=== PATIENT | male | born 1950 | race Caucasian/White ===

== ENCOUNTER 2017-05-28 05:46 | Day surgery (SDC) | payer MEDICARE ==
[2017-05-28] MEDS ORDERED: Lactated Ringers 1,000 ML IV SCH (06:30)
[2017-05-28 07:55] LABS: ANION GAP 15.8 MEQ/L (5-15); Potassium 3.8 mEq/L (3.5-5.1)
[2017-05-28] MEDS ORDERED: DIPRIVAN 200 MG/20 ML IV ONE (09:00)
[2017-05-28] MEDS ORDERED: Versed 2 MG/2 ML Injection IV ONE (09:00)
--- NOTE | 2017-05-28 09:00 | OP ---
SURGERY DATE/TIME: 05/28/2017 0755 PREOPERATIVE DIAGNOSIS: Left lower quadrant abdominal pain. POSTOPERATIVE DIAGNOSIS: Moderate sigmoid diverticulosis otherwise normal colon. PROCEDURE: Colonoscopy. SURGEON: Dr. Russell. ANESTHESIA: MAC. Medications given by anesthesia department. HISTORY: The patient is a 66 year-old white male patient presenting now for colonoscopic evaluation. He has been complaining of left lower quadrant abdominal pain. He reports previously having a colonoscopy where he did have diverticula but polyps were also found. The patient was felt the need to have endoscopic evaluation. He was reappraised of the risks of the procedure including the risk of perforation, phlebitis, untoward reaction to medication, bleeding and missed lesions. The patient verbalized his understanding and desired to have the procedure performed. DESCRIPTION OF PROCEDURE: The patient was given the medications by the anesthesia department. He had continuous pulse oximetry, ECG monitoring, intermittent blood pressure monitoring, and tidal CO2 monitoring during the examination. He was placed in the left lateral decubitus position. A digital rectal examination was performed and revealed a smooth, regular but enlarged prostate. Normal anal sphincter tone and no masses. The flexible Olympus pediatric colonoscope was used to intubate the rectum. A view of the colon was developed sequentially to the cecum. Upon insertion and withdrawal, including a retroflex view in the rectum, there was noted moderate sigmoid diverticula but no other mucosal lesions were encountered. The scope was removed from the patient who tolerated the procedure well and was sent back to OP recovery in good condition. The prep was noted to be fair to good in the left colon but the right colon had some fecal material still present.
[2017-05-28 10:01] VITALS: BP 101/60; PULSE 80; O2SAT 95
[2017-05-29 07:47] LABS: Prostate Specific Antigen 1.28 ng/mL (<=4.50)
== END 2017-05-28 09:45 | disposition home or self-care (01) ==
LOC: SDC 05:46
PROVIDERS: ATTEND Family Medicine
PROC: 0DJD8ZZ Inspection of Lower Intestinal Tract, Via Natural or Artificial Opening Endoscopic (ICD-10-PCS; principal; 2017-05-28)
DX: R10.32 Left lower quadrant pain (principal); K57.30 Diverticulosis of large intestine without perforation or abscess without bleeding
CPT/HCPCS: 00810; 36415; 80048; 84153; 84154; J2250; J2704

== ENCOUNTER 2018-11-05 10:48 | Emergency (ER) | payer MEDICARE ==
[2018-11-05 11:22] VITALS: BP 118/75; PULSE 72; O2SAT 98
--- NOTE | 2018-11-05 11:28 | ERPHSYRPT ---
- History of Present Illness Time Seen by Provider: 11/05/18 11:25 Source: patient Exam Limitations: no limitations Patient Subjective Stated Complaint: right side back pain x 3 days.. no known injury. denies urinary problems. vague with symptoms. states pain increases with movement. Triage Nursing Assessment: alert and in no distress. states pain cheyanne right low back area with no known injury. vague about urinary symptoms. states increased pain with movement and deep breathing. pain on palpation Physician History: 67-year-old white male with history of COPD, diabetes type 2, arthritis, who states he has a weak heart and is on a water pill. Patient arrives with complaint of right flank pain intermittent sharp symptoms going on for 3 days states it is somewhat moderate in intensity when it occurs it is somewhat worse with moving. He does state he has had some dysuria denies hematuria. Past medical history includes COPD, diabetes type 2, arthritis, "weak heart muscle" Past surgical history includes cardiac catheterization Social history patient denies tobacco alcohol or illicit drug use Timing/Duration: day(s) (3 days) Severity: moderate Modifying Factors: Improves With: movement. Worsens With: eating, immobilization, medication, rest, acetaminophen, ibuprofen, nothing Associated Symptoms: other (right flank pain), No nausea, No vomiting, No abdominal pain, No shortness of breath, No heartburn, No diaphoresis, No cough, No chills, No chest pain, No fever, No headaches, No loss of appetite, No malaise, No rash, No syncope, No seizure, No weakness Allergies/Adverse Reactions: Penicillins Allergy (Verified 11/05/18 11:38) Home Medications: Albuterol Sulfate [Proair Hfa] 2 puff IH Q4HPRN PRN 02/20/13 [History] Metoprolol Tartrate 50 mg [Lopressor 50 MG] 25 mg PO BID 02/20/13 [History ] Omeprazole 40 mg PO DAILY 02/20/13 [History] Allopurinol 300 mg [Zyloprim 300 mg] 300 mg PO DAILY 03/13/14 [History] Aspirin [Aspirin EC] 81 mg PO DAILY 03/13/14 [History] Enalapril Maleate 10 mg [Vasotec 10 MG] 10 mg PO BID 03/13/14 [History] Furosemide 40 mg PO BID 03/13/14 [History] Montelukast Sodium 10 mg [Singulair 10 MG] 10 mg PO HS 03/13/14 [History] Potassium Chloride [Klor-Con 8] 8 meq PO BID 03/13/14 [History] Acetaminophen/Dp-Hydram HCl [Acetaminophen Pm Tablet] 1 each PO HS 03/26/16 [ History] Meloxicam 7.5 mg [Mobic 7.5 MG] 7.5 mg PO DAILY 03/26/16 [History] Bellona-3 Fatty Acids/Fish Oil [Fish Oil 1,000 mg Capsule] 1,000 mg PO DAILY 05/22/17 [History] Hx Tetanus, Diphtheria Vaccination/Date Given: No Hx Influenza Vaccination/Date Given: No Hx Pneumococcal Vaccination/Date Given: No - Review of Systems Constitutional: No Fever, No Chills Eyes: No Symptoms Ears, Nose, & Throat: No Symptoms Respiratory: No Cough, No Dyspnea Cardiac: No Chest Pain, No Edema, No Syncope Abdominal/Gastrointestinal: No Nausea, No Vomiting, No Diarrhea, No Constipation , No Hematemesis, No Hematochezia, No Melena, No Dysphagia, No Appetite Changes Genitourinary Symptoms: Dysuria, Flank Pain (right flank pain), No Frequency, No Hematuria, No Hesitancy, No Incontinence, No Urgency, No Urinary Retention, No Testicle Pain, No Penile Discharge Musculoskeletal: Back Pain (right flank pain), No Arthralgias, No Neck Pain, No Injury, No Joint Redness, No Joint Pain, No Joint Swelling, No Myalgias Skin: No Symptoms Neurological: No Dizziness, No Focal Weakness, No Sensory Changes Psychological: No Symptoms Endocrine: No Symptoms All Other Systems: Reviewed and Negative - Past Medical History Pertinent Past Medical History: Yes Neurological History: No Pertinent History ENT History: No Pertinent History Cardiac History: Congestive Heart Failure, Other Respiratory History: COPD Endocrine Medical History: Diabetes Type II Musculoskeletal History: Arthritis GI Medical History: GERD History: No Pertinent History Psycho-Social History: No Pertinent History Male Reproductive Disorders: No Pertinent History Other Medical History: weak heart muscles, cardiomyopathy - Past Surgical History Past Surgical History: Yes Neuro Surgical History: No Pertinent History Cardiac: Cardiac Catheterization Respiratory: No Pertinent History Gastrointestinal: No Pertinent History Genitourinary: No Pertinent History Musculoskeletal: No Pertinent History Male Surgical History: No Pertinent History - Social History Smoking Status: Never smoker Exposure to second hand smoke: No Drug Use: none Patient Lives Alone: No - Nursing Vital Signs Nursing Vital Signs: Initial Vital Signs Temperature 98.7 F 11/05/18 11:10 Pulse Rate 72 11/05/18 11:10 Respiratory Rate 18 11/05/18 11:10 Blood Pressure 118/75 11/05/18 11:10 O2 Sat by Pulse Oximetry 98 11/05/18 11:10 Pain Scale Pain Intensity [] 6 Pain Intensity 6 - Physical Exam General Appearance: mild distress, alert Eye Exam: PERRL/EOMI, eyes nml inspection Ears, Nose, Throat Exam: normal ENT inspection, TMs normal, pharynx normal, moist mucous membranes Neck Exam: normal inspection, non-tender, supple, full range of motion Respiratory Exam: normal breath sounds, lungs clear, No respiratory distress Cardiovascular Exam: regular rate/rhythm, normal heart sounds, normal peripheral pulses, capillary refill <2 sec Gastrointestinal/Abdomen Exam: soft, distention (abdomen mildly distended), No tenderness, No mass, No guarding, No ecchymosis, No pulsatile mass, No rebound, No hernia, No hepatomegaly, No organomegaly, No splenomegaly Back Exam: normal range of motion, CVA tenderness (right flank tenderness), No vertebral tenderness, No rash, No decreased range of motion, No muscle spasm, No point tenderness Extremity Exam: normal inspection, normal range of motion, pelvis stable Neurologic Exam: alert, oriented x 3, cooperative, 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 Nonobstructing bilateral renal micro-calculi. Stable small bilateral renal cyst. 2. New cardiomegaly and spleno megaly. 3. Stable large gallstone(3cm), hepatomegaly, colonic diverticulosis and enlarged prostate gland) Ordered Tests: Active Orders 24 hr Category Date Time Status IV Insertion STAT Care 11/05/18 11:23 Active ABDOMEN AND PELVIS W/0 CONTRAS [CT] Stat Exams 11/05/18 11:24 Completed AMYLASE Stat Lab 11/05/18 11:46 Completed CBC W DIFF Stat Lab 11/05/18 11:46 Completed CMP Stat Lab 11/05/18 11:46 Completed LIPASE Stat Lab 11/05/18 11:46 Completed UA W/RFX UR CULTURE Stat Lab 11/05/18 11:46 Completed Medication Summary Generic Name Dose Route Start Last Admin Trade Name Freq PRN Reason Stop Dose Admin Sodium Chloride 1,000 mls @ 100 mls/hr 11/05/18 11:30 11/05/18 11:51 Sodium Chloride 0.9% 1000 Ml IV 12/05/18 11:29 100 mls/hr .Q10H WYATT Administration Discontinued Medications Generic Name Dose Route Start Last Admin Trade Name Freq PRN Reason Stop Dose Admin Morphine Sulfate 4 mg 11/05/18 11:23 11/05/18 11:50 Morphine Sulfate 4 Mg Inj IV 11/05/18 11:24 4 mg STAT ONE Administration Morphine Sulfate Confirm 11/05/18 11:46 Morphine Sulfate 4 Mg Inj Administered 11/05/18 11:47 Dose 4 mg .ROUTE .STK-MED ONE Ondansetron HCl 4 mg 11/05/18 11:23 11/05/18 11:51 Zofran 4 Mg/2 Ml Vial IV 11/05/18 11:24 4 mg STAT ONE Administration Ondansetron HCl Confirm 11/05/18 11:46 Zofran 4 Mg/2 Ml Vial Administered 11/05/18 11:47 Dose 4 mg .ROUTE .STK-MED ONE Lab/Rad Data: Laboratory Result Diagrams 11/05/18 11:46 11/05/18 11:46 Laboratory Results 11/05/18 11/05/18 11/05/18 Range/Units 11:46 11:46 11:46 WBC 6.6 (4.0-10.5) K/mm3 RBC 4.35 (4.1-5.6) M/mm3 Hgb 13.7 (12.5-18.0) gm/dl Hct 42.3 (42-50) % MCV 97.2 (78-100) fl MCH 31.5 (26-32) pg MCHC 32.4 (32-36) g/dl RDW 13.5 (11.5-14.0) % Plt Count 169 (150-450) K/mm3 MPV 11.4 H (6-9.5) fl Gran % 68.6 H (36.0-66.0) % Eos # (Auto) 0.10 (0-0.5) Absolute Lymphs (auto) 1.45 (1.0-4.6) Absolute Monos (auto) 0.48 (0.0-1.3) Lymphocytes % 22.0 L (24.0-44.0) % Monocytes % 7.3 (0.0-12.0) % Eosinophils % 1.5 (0.00-5.0) % Basophils % 0.6 (0.0-0.4) % Absolute Granulocytes 4.52 (1.4-6.9) Basophils # 0.04 (0-0.4) Sodium 142 (137-145) mmol/L Potassium 4.3 (3.5-5.1) mmol/L Chloride 104 (98-107) mmol/L Carbon Dioxide 29 (22-30) mmol/L Anion Gap 13.4 (5-15) MEQ/L BUN 21 H (9-20) mg/dL Creatinine 1.21 (0.66-1.25) mg/dL Estimated GFR > 60.0 ML/MIN Glucose 143 H (74-106) mg/dL Calcium 9.2 (8.4-10.2) mg/dL Total Bilirubin 0.80 (0.2-1.3) mg/dL AST 26 (17-59) U/L ALT 26 (0-50) U/L Alkaline Phosphatase 78 (38-126) U/L Serum Total Protein 7.0 (6.3-8.2) g/dL Albumin 4.2 (3.5-5.0) g/dL Amylase 54 (30-110) U/L Lipase 52 (23-300) U/L Urine Color STRAW (YELLOW) Urine Appearance CLEAR (CLEAR) Urine pH 6.0 (5-6) Ur Specific [place] 1.006 (1.005-1.025) Urine Protein NEGATIVE (Negative) Urine Ketones NEGATIVE (NEGATIVE) Urine Blood NEGATIVE (0-5) Jorge/ul Urine Nitrite NEGATIVE (NEGATIVE) Urine Bilirubin NEGATIVE (NEGATIVE) Urine Urobilinogen NEGATIVE (0-1) mg/dL Ur Leukocyte Esterase NEGATIVE (NEGATIVE) Urine WBC (Auto) NONE (0-5) /HPF Urine RBC (Auto) NONE (0-2) /HPF U Epithel Cells (Auto) NONE (FEW) /HPF Urine Bacteria (Auto) NONE (NEGATIVE) /HPF Urine Culture Reflexed NO (NO) Urine Glucose NEGATIVE (NEGATIVE) mg/dL - Progress Progress: improved Progress Note: 11/05/18 12:29 67-year-old white male arrives with complaint of right flank pain for 3 days he states he has had dysuria. Patient's labs essentially normal CT of the abdomen shows nonobstructed bilateral renal micro-calculi. In stable small bilateral renal cysts. There is new cardiomegaly and splenomegaly as compared to 2015. Patient has a stable 3 cm gallstone and hepatomegaly, colonic diverticulosis and enlarged prostate gland. Will plan to place patient on [place] for pain patient will need to follow-up with his family doctor. - Departure Time of Disposition: 12:36 Departure Disposition: Home Clinical Impression: Right flank pain, Splenomegaly Gallstone Qualifiers: Cholecystitis presence: without cholecystitis Biliary obstruction: without biliary obstruction Qualified Code(s): K80.20 - Calculus of gallbladder without cholecystitis without obstruction Condition: Fair Critical Care Time: No Referrals: MAXIMUS RUSSELL [Primary Care Provider] - Additional Instructions: Return home. [place] 5/325 one orally every 4-6 hours as needed for pain. Follow-up with Dr. Russell. Call his office and arrange a follow-up appointment.. Return for acute distress or for severe symptoms. Prescriptions: Hydrocodone/Acetaminophen [[place] 5-325 Tablet] 1 tablet PO Q4-6HPRN PRN #12 tablet MDD 6 tablets PRN Reason: Pain
[2018-11-05] MEDS ORDERED: MORPHINE SULFATE 4 MG INJ ONE (11:46)
[2018-11-05] MEDS ORDERED: Sodium Chloride 0.9% 1000 ML 1,000 ML ONE (11:46)
[2018-11-05] MEDS ORDERED: Zofran 4 MG/2 ML VIAL ONE (11:46)
[2018-11-05 11:48] LABS: BASOPHIL % 0.6 % (0.0-0.4); Basophil (Absolute #) 0.04 (0-0.4); Eosinophil % 1.5 % (0.00-5.0); Granulocyte Absolute (ANC) 4.52 (1.4-6.9); Granulocytes % 68.6 % (36.0-66.0); Hematocrit 42.3 % (42-50); Hemoglobin 13.7 gm/dl (12.5-18.0); Lymphocyte (Absolute #) 1.45 (1.0-4.6); Mean Cell Volume 97.2 fl (78-100); Mean Corpuscular Hemoglobin 31.5 pg (26-32); Mean Corpuscular Hgb Concent. 32.4 g/dl (32-36); Mean Platelet Volume 11.4 fl (6-9.5); Monocyte (Absolute #) 0.48 (0.0-1.3); Monocytes % 7.3 % (0.0-12.0); Platelet Count 169 K/mm3 (150-450); Red Blood Count 4.35 M/mm3 (4.1-5.6); Red Cell Distribution Width 13.5 % (11.5-14.0); White Blood Count 6.6 K/mm3 (4.0-10.5)
[2018-11-05 11:50] LABS: Appearance CLEAR (CLEAR); Bilirubin NEGATIVE (NEGATIVE); Blood NEGATIVE Ery/ul (0-5); Glucose NEGATIVE (NEGATIVE); Ketones NEGATIVE (NEGATIVE); Leukocyte Esterase NEGATIVE (NEGATIVE); Nitrite NEGATIVE (NEGATIVE); Protein,Urine Dip NEGATIVE (Negative); Specific Gravity 1.006 (1.005-1.025); Urobilinogen NEGATIVE mg/dL (0-1)
[2018-11-05] MEDS: MORPHINE SULFATE 4 MG INJ IV ONE (11:50)
[2018-11-05] MEDS: Sodium Chloride 0.9% 1000 ML 1,000 ML IV SCH (11:51)
[2018-11-05] MEDS: Zofran 4 MG/2 ML VIAL IV ONE (11:51)
[2018-11-05 11:59] LABS: ALBUMIN 4.2 g/dL (3.5-5.0); ALKALINE PHOSPHATASE 78 U/L (38-126); AMYLASE 54 U/L (30-110); ANION GAP 13.4 MEQ/L (5-15); BLOOD UREA NITROGEN 21 mg/dL (9-20); CHLORIDE 104 mmol/L (98-107); Calcium 9.2 mg/dL (8.4-10.2); Carbon Dioxide 29 mmol/L (22-30); Creatinine 1 1.21 mg/dL (0.66-1.25); Glucose 143 mg/dL (74-106); LIPASE 52 U/L (23-300); Potassium 4.3 mmol/L (3.5-5.1); SGOT/AST 26 U/L (17-59); SGPT/ALT 26 U/L (0-50); SODIUM 142 mmol/L (137-145)
--- NOTE | 2018-11-05 12:26 | XRAY ---
Indication: Right flank pain. Multiple contiguous axial images obtained through the abdomen and pelvis without contrast using renal stone protocol. Comparison: March 12, 2015. Lung bases demonstrates mild bilateral dependent atelectasis. A few tiny right base calcified granulomas. No infiltrate or effusion. Heart is now enlarged. Again a few nonobstructing bilateral renal micro-calculi and small bilateral renal cysts. Stable 3 cm gallstone and hepatomegaly. Spleen is now enlarged measuring 15 cm in greatest axial dimension again with calcified granulomas. Stable enlarged prostate gland again impressing on the base of the bladder. Noncontrasted stomach and bowel loops appear nonobstructed. Normal appendix. Again scattered colonic diverticulosis, greatest in the sigmoid. No free fluid/air. Remaining liver, pancreas, adrenal glands, spleen, kidneys, ureters, bladder, and aorta appear unremarkable for noncontrast exam. Osseous structures intact again with mild/moderate degenerative changes throughout the spine. No ventral or inguinal hernias. Impression: 1. Again nonobstructing bilateral renal micro-calculi. Stable small bilateral renal cysts. 2. New cardiomegaly and splenomegaly. 3. Stable large gallstone, hepatomegaly, colonic diverticulosis, and enlarged prostate gland. CT DI 28.13
== END 2018-11-05 12:55 | disposition home or self-care (01) ==
LOC: ED 10:48
DX: R10.9 Unspecified abdominal pain (principal); R16.2 Hepatomegaly with splenomegaly, not elsewhere classified; K80.80 Other cholelithiasis without obstruction; K57.30 Diverticulosis of large intestine without perforation or abscess without bleeding; N40.0 Benign prostatic hyperplasia without lower urinary tract symptoms; N28.1 Cyst of kidney, acquired; Z79.899 Other long term (current) drug therapy; R30.0 Dysuria
CPT/HCPCS: 36000; 36415; 74176; 80053; 81001; 82150; 83690; 85025; 96360; 96374; 96375; 99284; J2270; J2405

== ENCOUNTER 2018-12-09 11:19 | Emergency (ER) | payer MEDICARE ==
[2018-12-09] MEDS ORDERED: Sodium Chloride 0.9% 1000 ML 1,000 ML IV STA (11:45)
[2018-12-09] MEDS ORDERED: Hydromorphone 1 mg/ml Ampule IV ONE (11:45)
[2018-12-09] MEDS ORDERED: Zofran 4 MG/2 ML VIAL IV ONE (11:45)
--- NOTE | 2018-12-09 11:45 | ERPHSYRPT ---
- History of Present Illness Time Seen by Provider: 12/09/18 11:30 Historian: patient, family Exam Limitations: no limitations Patient Subjective Stated Complaint: Pain in right back, vomiting Triage Nursing Assessment: Pt c/o of right sided back pain that radiates to the front upper and lower quadrants of the right side, pain with palpatation, last BM today, last intake at dinner yesterday, rates pain 6/10, N&V, pulses normal, +1 edema to bilateral lower extremeties, vitals wnl, reports that he had been diagnosed with either gall stones or kidney stones, he can't remember which one Physician History: 67 y/o morbidly obese white male with cardiomyopathy,chf and copd presents with right flank pain radiating to ruq and associated n/v intermittently since . pt is being evaluated by pcp. had appt with pcp scheduled for today at 1pm. could not take the pain. pt denies cp and denies soa. pt has known gallstones and kidney stones. pt is scheduled for eval by glass block installer in January 2019 Activities at Onset: none Quality: aching, sharpness Abdominal Pain Onset Location: RUQ, flank (right) Severity of Pain-Max: moderate Severity of Pain-Current: mild Modifying Factors: Improves With: vomiting Associated Symptoms: back, vomiting Previous symptoms: same symptoms as today Allergies/Adverse Reactions: Penicillins Allergy (Verified 12/09/18 11:40) Home Medications: Albuterol Sulfate [Proair Hfa] 2 puff IH Q4HPRN PRN 02/20/13 [History] Metoprolol Tartrate 50 mg [Lopressor 50 MG] 25 mg PO BID 02/20/13 [History ] Omeprazole 40 mg PO DAILY 02/20/13 [History] Allopurinol 300 mg [Zyloprim 300 mg] 300 mg PO DAILY 03/13/14 [History] Aspirin [Aspirin EC] 81 mg PO DAILY 03/13/14 [History] Enalapril Maleate 10 mg [Vasotec 10 MG] 10 mg PO BID 03/13/14 [History] Furosemide 80 mg PO DAILY 03/13/14 [History] Montelukast Sodium 10 mg [Singulair 10 MG] 10 mg PO HS 03/13/14 [History] Potassium Chloride [Klor-Con 8] 8 meq PO BID 03/13/14 [History] Acetaminophen/Dp-Hydram HCl [Acetaminophen Pm Tablet] 1 each PO HS 03/26/16 [ History] Meloxicam 7.5 mg [Mobic 7.5 MG] 7.5 mg PO DAILY 03/26/16 [History] [place]-3 Fatty Acids/Fish Oil [Fish Oil 1,000 mg Capsule] 1,000 mg PO DAILY 05/22/17 [History] Fluticasone/Salmeterol [Advair 250-50 Diskus] 1 each IH BID 12/09/18 [History] Nizatidine [Axid] 150 mg PO BID 12/09/18 [History] Hx Tetanus, Diphtheria Vaccination/Date Given: No Hx Influenza Vaccination/Date Given: No Hx Pneumococcal Vaccination/Date Given: No - Review of Systems Constitutional: No Symptoms Eyes: No Symptoms Ears, Nose, & Throat: No Symptoms Respiratory: No Symptoms Cardiac: No Symptoms, No Palpitations, No Syncope Abdominal/Gastrointestinal: Abdominal Pain (ruq), Nausea, Vomiting, No Diarrhea Genitourinary Symptoms: No Symptoms, No Dysuria, No Frequency, No Hematuria Musculoskeletal: Back Pain (right flank) Skin: No Symptoms Neurological: No Symptoms Psychological: No Symptoms Endocrine: No Symptoms Hematologic/Lymphatic: No Symptoms Immunological/Allergic: No Symptoms All Other Systems: Reviewed and Negative - Past Medical History Pertinent Past Medical History: Yes Neurological History: No Pertinent History ENT History: No Pertinent History Cardiac History: Congestive Heart Failure, Other Respiratory History: COPD Endocrine Medical History: Diabetes Type II Musculoskeletal History: Arthritis GI Medical History: GERD History: No Pertinent History Psycho-Social History: No Pertinent History Male Reproductive Disorders: No Pertinent History Other Medical History: weak heart muscles, cardiomyopathy, enlarged spleen - Past Surgical History Past Surgical History: Yes Neuro Surgical History: No Pertinent History Cardiac: Cardiac Catheterization Respiratory: No Pertinent History Gastrointestinal: No Pertinent History Genitourinary: No Pertinent History Musculoskeletal: No Pertinent History Male Surgical History: No Pertinent History - Social History Smoking Status: Never smoker Exposure to second hand smoke: No Drug Use: none Patient Lives Alone: No - Nursing Vital Signs Nursing Vital Signs: Initial Vital Signs Temperature 97.6 F 12/09/18 11:22 Pulse Rate 73 12/09/18 11:22 Blood Pressure 104/60 12/09/18 11:22 O2 Sat by Pulse Oximetry 93 L 12/09/18 11:22 Pain Scale Pain Intensity 6 - Physical Exam General Appearance: mild distress, alert Eye Exam: PERRL/EOMI Ears, Nose, Throat Exam: normal ENT inspection, moist mucous membranes Neck Exam: normal inspection, non-tender, supple, full range of motion Respiratory Exam: normal breath sounds, lungs clear, airway intact, No chest tenderness, No respiratory distress, No accessory muscle use, No rhonchi, No wheezing, No stridor Cardiovascular Exam: regular rate/rhythm, normal heart sounds, normal peripheral pulses Gastrointestinal/Abdomen Exam: soft, normal bowel sounds, tenderness (mild ruq with palpation), No guarding, No rebound Rectal Exam: not done Back Exam: normal inspection, normal range of motion, CVA tenderness (right), No vertebral tenderness Extremity Exam: normal inspection, normal range of motion, pelvis stable Skin Exam: normal color, warm Lymphatic Exam: No adenopathy SpO2 Interpretation: borderline oxygenation SpO2: 93 - Course Nursing assessment & vital signs reviewed: Yes Ordered Tests: Active Orders 24 hr Category Date Time Status IV Insertion STAT Care 12/09/18 11:45 Active ABDOMEN AND PELVIS W/0 CONTRAS [CT] Stat Exams 12/09/18 11:47 Completed AMYLASE Stat Lab 12/09/18 12:00 Completed CBC W DIFF Stat Lab 12/09/18 12:00 Completed CMP Stat Lab 12/09/18 12:00 Completed LIPASE Stat Lab 12/09/18 12:00 Completed Lactic Acid Stat Lab 12/09/18 11:45 Results UA W/RFX UR CULTURE Stat Lab 12/09/18 12:34 Completed Medication Summary Discontinued Medications Generic Name Dose Route Start Last Admin Trade Name Freq PRN Reason Stop Dose Admin Hydromorphone HCl 1 mg 12/09/18 11:45 12/09/18 12:30 Hydromorphone 1 Mg/Ml Ampule IV 12/09/18 11:46 1 mg STAT ONE Administration Hydromorphone HCl Confirm 12/09/18 12:07 Hydromorphone 1 Mg/Ml Ampule Administered 12/09/18 12:08 Dose 1 mg .ROUTE .STK-MED ONE Sodium Chloride 1,000 mls @ 999 mls/hr 12/09/18 11:45 12/09/18 12:29 Sodium Chloride 0.9% 1000 Ml IV 12/09/18 12:45 999 mls/hr .Q1H1M STA Administration Sodium Chloride Confirm 12/09/18 12:07 Sodium Chloride 0.9% 1000 Ml Administered 12/09/18 12:08 Dose 1,000 mls @ ud .ROUTE .STK-MED ONE Ondansetron HCl 4 mg 12/09/18 11:45 12/09/18 12:29 Zofran 4 Mg/2 Ml Vial IV 12/09/18 11:46 4 mg STAT ONE Administration Ondansetron HCl Confirm 12/09/18 12:07 Zofran 4 Mg/2 Ml Vial Administered 12/09/18 12:08 Dose 4 mg .ROUTE .STK-MED ONE Lab/Rad Data: Laboratory Result Diagrams 12/09/18 12:00 12/09/18 12:00 Laboratory Results 12/09/18 12/09/18 12/09/18 Range/Units 12:34 12:00 12:00 WBC 8.9 (4.0-10.5) K/mm3 RBC 4.49 (4.1-5.6) M/mm3 Hgb 13.8 (12.5-18.0) gm/dl Hct 43.1 (42-50) % MCV 96.0 (78-100) fl MCH 30.7 (26-32) pg MCHC 32.0 (32-36) g/dl RDW 13.8 (11.5-14.0) % Plt Count 157 (150-450) K/mm3 MPV 11.9 H (6-9.5) fl Gran % 69.8 H (36.0-66.0) % Eos # (Auto) 0.10 (0-0.5) Absolute Lymphs (auto) 1.98 (1.0-4.6) Absolute Monos (auto) 0.59 (0.0-1.3) Lymphocytes % 22.2 L (24.0-44.0) % Monocytes % 6.6 (0.0-12.0) % Eosinophils % 1.1 (0.00-5.0) % Basophils % 0.3 (0.0-0.4) % Absolute Granulocytes 6.23 (1.4-6.9) Basophils # 0.03 (0-0.4) Sodium 139 (137-145) mmol/L Potassium 4.0 (3.5-5.1) mmol/L Chloride 102 (98-107) mmol/L Carbon Dioxide 27 (22-30) mmol/L Anion Gap 15.0 (5-15) MEQ/L BUN 27 H (9-20) mg/dL Creatinine 1.11 (0.66-1.25) mg/dL Estimated GFR > 60.0 ML/MIN Glucose 232 H (74-106) mg/dL Lactic Acid (0.4-2.0) Calcium 9.3 (8.4-10.2) mg/dL Total Bilirubin 1.00 (0.2-1.3) mg/dL AST 27 (17-59) U/L ALT 29 (0-50) U/L Alkaline Phosphatase 97 (38-126) U/L Serum Total Protein 7.3 (6.3-8.2) g/dL Albumin 4.4 (3.5-5.0) g/dL Amylase 46 (30-110) U/L Lipase 45 (23-300) U/L Urine Color STRAW (YELLOW) Urine Appearance CLEAR (CLEAR) Urine pH 6.0 (5-6) Ur Specific [place] 1.006 (1.005-1.025) Urine Protein NEGATIVE (Negative) Urine Ketones NEGATIVE (NEGATIVE) Urine Blood NEGATIVE (0-5) Jorge/ul Urine Nitrite NEGATIVE (NEGATIVE) Urine Bilirubin NEGATIVE (NEGATIVE) Urine Urobilinogen NEGATIVE (0-1) mg/dL Ur Leukocyte Esterase NEGATIVE (NEGATIVE) Urine WBC (Auto) NONE (0-5) /HPF Urine RBC (Auto) NONE SEEN (0-2) /HPF U Epithel Cells (Auto) NONE (FEW) /HPF Urine Bacteria (Auto) NONE (NEGATIVE) /HPF Urine Mucus (Auto) SLIGHT (NEGATIVE) /HPF Urine Culture Reflexed NO (NO) Urine Glucose NEGATIVE (NEGATIVE) mg/dL 12/09/18 Range/Units 11:45 WBC (4.0-10.5) K/mm3 RBC (4.1-5.6) M/mm3 Hgb (12.5-18.0) gm/dl Hct (42-50) % MCV (78-100) fl MCH (26-32) pg MCHC (32-36) g/dl RDW (11.5-14.0) % Plt Count (150-450) K/mm3 MPV (6-9.5) fl Gran % (36.0-66.0) % Eos # (Auto) (0-0.5) Absolute Lymphs (auto) (1.0-4.6) Absolute Monos (auto) (0.0-1.3) Lymphocytes % (24.0-44.0) % Monocytes % (0.0-12.0) % Eosinophils % (0.00-5.0) % Basophils % (0.0-0.4) % Absolute Granulocytes (1.4-6.9) Basophils # (0-0.4) Sodium (137-145) mmol/L Potassium (3.5-5.1) mmol/L Chloride (98-107) mmol/L Carbon Dioxide (22-30) mmol/L Anion Gap (5-15) MEQ/L BUN (9-20) mg/dL Creatinine (0.66-1.25) mg/dL Estimated GFR ML/MIN Glucose (74-106) mg/dL Lactic Acid 3.1 H (0.4-2.0) Calcium (8.4-10.2) mg/dL Total Bilirubin (0.2-1.3) mg/dL AST (17-59) U/L ALT (0-50) U/L Alkaline Phosphatase (38-126) U/L Serum Total Protein (6.3-8.2) g/dL Albumin (3.5-5.0) g/dL Amylase (30-110) U/L Lipase (23-300) U/L Urine Color (YELLOW) Urine Appearance (CLEAR) Urine pH (5-6) Ur Specific [place] (1.005-1.025) Urine Protein (Negative) Urine Ketones (NEGATIVE) Urine Blood (0-5) Jorge/ul Urine Nitrite (NEGATIVE) Urine Bilirubin (NEGATIVE) Urine Urobilinogen (0-1) mg/dL Ur Leukocyte Esterase (NEGATIVE) Urine WBC (Auto) (0-5) /HPF Urine RBC (Auto) (0-2) /HPF U Epithel Cells (Auto) (FEW) /HPF Urine Bacteria (Auto) (NEGATIVE) /HPF Urine Mucus (Auto) (NEGATIVE) /HPF Urine Culture Reflexed (NO) Urine Glucose (NEGATIVE) mg/dL - Progress Progress: improved, pain not gone completely, re-examined Progress Note: 12/09/18 13:20 ct scan abd/pelvis- no acute process Counseled pt/family regarding: lab results, diagnosis, need for follow-up, rad results - Departure Time of Disposition: 13:20 Departure Disposition: Home Clinical Impression: Abdominal pain of unknown cause, Vomiting Condition: Stable Critical Care Time: No Referrals: MAXIMUS MCNULTY [Primary Care Provider] - Additional Instructions: clear liquid diet. follow up with dr. mcnulty tomorrow for further management. avoid fatty, greasy, spicy foods. Prescriptions: Hydrocodone/APAP 5-325 Tab^^^ [[place] 5-325 Tablet^^^] 1 tab PO Q12H PRN PRN #6 tablet MDD 2 PRN Reason: Pain Ondansetron HCl [Zofran] 4 mg PO TID PRN #10 tablet PRN Reason: Nausea/Vomiting
[2018-12-09] MEDS ORDERED: Sodium Chloride 0.9% 1000 ML 1,000 ML ONE (12:07)
[2018-12-09] MEDS ORDERED: Hydromorphone 1 mg/ml Ampule ONE (12:07)
[2018-12-09] MEDS ORDERED: Zofran 4 MG/2 ML VIAL ONE (12:07)
[2018-12-09 12:13] LABS: Lactic Acid 3.1 (0.4-2.0)
[2018-12-09 12:15] LABS: BASOPHIL % 0.3 % (0.0-0.4); Basophil (Absolute #) 0.03 (0-0.4); Eosinophil % 1.1 % (0.00-5.0); Granulocyte Absolute (ANC) 6.23 (1.4-6.9); Granulocytes % 69.8 % (36.0-66.0); Hematocrit 43.1 % (42-50); Hemoglobin 13.8 gm/dl (12.5-18.0); Lymphocyte (Absolute #) 1.98 (1.0-4.6); Lymphocytes % 22.2 % (24.0-44.0); Mean Corpuscular Hemoglobin 30.7 pg (26-32); Mean Platelet Volume 11.9 fl (6-9.5); Monocyte (Absolute #) 0.59 (0.0-1.3); Monocytes % 6.6 % (0.0-12.0); Platelet Count 157 K/mm3 (150-450); Red Blood Count 4.49 M/mm3 (4.1-5.6); Red Cell Distribution Width 13.8 % (11.5-14.0); White Blood Count 8.9 K/mm3 (4.0-10.5)
[2018-12-09 12:26] LABS: ALBUMIN 4.4 g/dL (3.5-5.0); ALKALINE PHOSPHATASE 97 U/L (38-126); AMYLASE 46 U/L (30-110); BLOOD UREA NITROGEN 27 mg/dL (9-20); CHLORIDE 102 mmol/L (98-107); Calcium 9.3 mg/dL (8.4-10.2); Carbon Dioxide 27 mmol/L (22-30); Creatinine 1 1.11 mg/dL (0.66-1.25); Glucose 232 mg/dL (74-106); LIPASE 45 U/L (23-300); SGOT/AST 27 U/L (17-59); SGPT/ALT 29 U/L (0-50); SODIUM 139 mmol/L (137-145); Total Protein 7.3 g/dL (6.3-8.2)
--- NOTE | 2018-12-09 12:31 | XRAY ---
Indication: Right flank pain. Nausea and vomiting. Multiple contiguous axial images obtained through the abdomen and pelvis without contrast as ordered. Comparison: November 05, 2018. Lung bases again demonstrates bibasilar dependent atelectasis without infiltrate or effusion. Heart remains enlarged. Stable small hiatal hernia. Noncontrasted stomach and bowel loops again nonobstructed. Normal appendix. Again scattered colonic diverticulosis without diverticulitis. No free fluid/air. Spleen remains enlarged today 14 cm again with calcified granulomas. Stable 3 cm gallstone, hepatomegaly, nonobstructing bilateral renal micro-calculi, bilateral renal cysts, and enlarged prostate gland. Remaining liver, gallbladder, pancreas, adrenal glands, spleen, adrenal glands, kidneys, ureters, bladder, and aorta appear unremarkable for noncontrast exam. Osseous structures intact again with moderate degenerative changes throughout the thoracolumbar spine. Again no ventral or inguinal hernias. Impression: 1. Stable cardiomegaly, hiatal hernia, colonic diverticulosis, hepatosplenomegaly, gallstone, nonobstructing bilateral renal micro-calculi, bilateral renal cysts, and enlarged prostate gland. 2. No new or acute intra-abdominal/pelvic abnormalities on this noncontrast exam. CT DI 35.18
[2018-12-09 13:10] LABS: Appearance CLEAR (CLEAR); Bilirubin NEGATIVE (NEGATIVE); Blood NEGATIVE Ery/ul (0-5); Glucose NEGATIVE (NEGATIVE); Ketones NEGATIVE (NEGATIVE); Leukocyte Esterase NEGATIVE (NEGATIVE); Mucus SLIGHT /HPF (NEGATIVE); Nitrite NEGATIVE (NEGATIVE); Protein,Urine Dip NEGATIVE (Negative); Specific Gravity 1.006 (1.005-1.025); Urobilinogen NEGATIVE mg/dL (0-1)
[2018-12-09 13:11] LABS: RBC NONE SEEN /HPF (0-2)
[2018-12-09] MEDS ORDERED: Phenergan 25 MG INJ IM ONE (15:56)
[2018-12-09] MEDS ORDERED: Phenergan 25 MG INJ ONE (16:05)
[2018-12-09 16:17] VITALS: BP 107/59; PULSE 80; O2SAT 95
== END 2018-12-09 16:21 | disposition home or self-care (01) ==
LOC: ED 11:19
DX: R10.9 Unspecified abdominal pain (principal); R11.10 Vomiting, unspecified; J44.9 Chronic obstructive pulmonary disease, unspecified; E11.9 Type 2 diabetes mellitus without complications; K21.9 Gastro-esophageal reflux disease without esophagitis; M19.90 Unspecified osteoarthritis, unspecified site; I42.9 Cardiomyopathy, unspecified; R16.1 Splenomegaly, not elsewhere classified; I50.9 Heart failure, unspecified; Z79.899 Other long term (current) drug therapy
CPT/HCPCS: 36415; 74176; 80053; 81001; 82150; 83605; 83690; 84484; 85025; 93005; 96360; 96372; 96374; 96375; 99284; J1170; J2405; J2550

== ENCOUNTER 2019-01-30 16:20 | Emergency (ER) | payer MEDICARE ==
[2019-01-30] MEDS ORDERED: Sodium Chloride 0.9% 1000 ML 1,000 ML IV SCH (17:00)
--- NOTE | 2019-01-30 17:05 | ERPHSYRPT ---
- History of Present Illness Time Seen by Provider: 01/30/19 16:45 Historian: patient Exam Limitations: clinical condition Patient Subjective Stated Complaint: urinary frequency since saturday. had gb out on saturday. Triage Nursing Assessment: to room per w/c. skin jaundiced. skin w/d. assisted to bed per staff. having some weakness. Physician History: PATIENT WITH A HISTORY OF KIDNEY STONES, COPD, BORDERLINE DIABETES, UNDERWENT LAPAROSCOPIC CHOLECYSTECTOMY 4 DAYS AGO AND NOW COMPLAINS OF URINARY FREQUENCY, AND SUPRAPUBIC PRESSURE X 2 DAYS. DENIES NAUSEA, EMESIS, FEVER AND CHILLS. PATIENT ALSO COMPLAINS OF RECTAL HEMORRHOIDS. Timing/Duration: day(s) Activities at Onset: none Quality: cramping Abdominal Pain Onset Location: suprapubic Pain Radiation: no radiation Severity of Pain-Max: mild Severity of Pain-Current: mild Modifying Factors: Improves With: urinating Associated Symptoms: denies symptoms Previous symptoms: same symptoms as today Allergies/Adverse Reactions: Penicillins Allergy (Verified 01/30/19 16:42) Home Medications: Albuterol Sulfate [Proair Hfa] 2 puff IH Q4HPRN PRN 02/20/13 [History] Metoprolol Tartrate 50 mg [Lopressor 50 MG] 25 mg PO BID 02/20/13 [History ] Omeprazole 40 mg PO DAILY 02/20/13 [History] Enalapril Maleate 10 mg [Vasotec 10 MG] 10 mg PO BID 03/13/14 [History] Furosemide 80 mg PO DAILY 03/13/14 [History] Montelukast Sodium 10 mg [Singulair 10 MG] 10 mg PO HS 03/13/14 [History] Potassium Chloride [Klor-Con 8] 8 meq PO BID 03/13/14 [History] Fluticasone/Salmeterol [Advair 250-50 Diskus] 1 each IH BID 12/09/18 [History] Hydrocodone/APAP 5-325 Tab^^^ [[place] 5-325 Tablet^^^] 1 tab PO Q4H PRN MDD 2 [History] Ondansetron HCl [Zofran] 4 mg PO Q4H PRN 01/30/19 [History] Hx Tetanus, Diphtheria Vaccination/Date Given: No Hx Influenza Vaccination/Date Given: No Hx Pneumococcal Vaccination/Date Given: No - Review of Systems Constitutional: No Fever, No Chills Eyes: No Symptoms Ears, Nose, & Throat: No Symptoms Respiratory: No Symptoms, No Cough, No Dyspnea Cardiac: No Symptoms, No Chest Pain, No Edema, No Syncope Abdominal/Gastrointestinal: Abdominal Pain, No Nausea, No Vomiting, No Diarrhea Genitourinary Symptoms: Frequency, Incontinence, Urgency, No Dysuria Musculoskeletal: No Back Pain, No Neck Pain Skin: No Rash Neurological: No Dizziness, No Focal Weakness, No Sensory Changes Psychological: No Symptoms Endocrine: No Symptoms All Other Systems: Reviewed and Negative - Past Medical History Pertinent Past Medical History: Yes Neurological History: No Pertinent History ENT History: No Pertinent History Cardiac History: Congestive Heart Failure, Other Respiratory History: COPD Endocrine Medical History: Diabetes Type II Musculoskeletal History: Arthritis GI Medical History: GERD History: No Pertinent History Psycho-Social History: No Pertinent History Male Reproductive Disorders: No Pertinent History Other Medical History: weak heart muscles, cardiomyopathy, enlarged spleen - Past Surgical History Past Surgical History: Yes Neuro Surgical History: No Pertinent History Cardiac: Cardiac Catheterization Respiratory: No Pertinent History Gastrointestinal: No Pertinent History, Cholecystectomy Genitourinary: No Pertinent History Musculoskeletal: No Pertinent History Male Surgical History: No Pertinent History - Social History Smoking Status: Never smoker Exposure to second hand smoke: No Drug Use: none Patient Lives Alone: No - Nursing Vital Signs Nursing Vital Signs: Initial Vital Signs Temperature 97.8 F 01/30/19 16:32 Pulse Rate 79 01/30/19 16:32 Respiratory Rate 18 01/30/19 16:32 Blood Pressure 123/82 01/30/19 16:32 O2 Sat by Pulse Oximetry 94 L 01/30/19 16:32 Pain Scale Pain Intensity 0 - Physical Exam General Appearance: no apparent distress, alert Eye Exam: PERRL/EOMI, eyes nml inspection Ears, Nose, Throat Exam: normal ENT inspection, pharynx normal, moist mucous membranes Neck Exam: normal inspection, non-tender, supple, full range of motion Respiratory Exam: normal breath sounds, lungs clear, No respiratory distress Cardiovascular Exam: regular rate/rhythm, normal heart sounds Gastrointestinal/Abdomen Exam: soft, normal bowel sounds, distention (TO THE LEVEL OF UMBILICUS), No tenderness, No mass Rectal Exam: normal rectal tone, hemorrhoids (EXTERNAL RECTAL HEMORRHOIDS 6MM X 4MM MEDIAL AND LATERA ASPECT, NONTHROMBOSED) Back Exam: normal inspection, normal range of motion, No CVA tenderness, No vertebral tenderness Extremity Exam: normal inspection, normal range of motion, pelvis stable Neurologic Exam: alert, oriented x 3, cooperative, normal mood/affect, nml cerebellar function, sensation nml, No motor deficits Skin Exam: normal color, warm, dry SpO2 Interpretation: normal SpO2: 94 - CT Exams Abdomen/Pelvis CT Interpretation: Discussed w/radiologist (NONOBSTRUCTIVE BILATERAL MICROCALCULLI, BILATERAL RENAL CYST, ENLARGED PROSTATE GLAND, SIGNIFACANTLY DISTENDED BLADDER) Ordered Tests: Active Orders 24 hr Category Date Time Status [place] [Catheter-[place] Melgar] STAT Care 01/30/19 18:49 Active IV Insertion STAT Care 01/30/19 16:58 Active ABDOMEN AND PELVIS W/0 CONTRAS [CT] Stat Exams 01/30/19 16:57 Taken BLOOD CULTURE Stat Lab 01/30/19 17:44 Received CBC W DIFF Stat Lab 01/30/19 17:38 Completed CMP Stat Lab 01/30/19 17:38 Completed UA W/RFX UR CULTURE Stat Lab 01/30/19 17:01 Completed Medication Summary Generic Name Dose Route Start Last Admin Trade Name Freq PRN Reason Stop Dose Admin Sodium Chloride 1,000 mls @ 100 mls/hr 01/30/19 17:00 01/30/19 17:28 Sodium Chloride 0.9% 1000 Ml IV 03/01/19 16:59 100 mls/hr .Q10H WYATT Administration Lab/Rad Data: Laboratory Result Diagrams 01/30/19 17:38 01/30/19 17:38 Laboratory Results 01/30/19 01/30/19 01/30/19 Range/Units 17:38 17:38 17:01 WBC 9.0 (4.0-10.5) K/mm3 RBC 4.32 (4.1-5.6) M/mm3 Hgb 13.5 (12.5-18.0) gm/dl Hct 41.0 L (42-50) % MCV 94.9 (78-100) fl MCH 31.3 (26-32) pg MCHC 32.9 (32-36) g/dl RDW 13.5 (11.5-14.0) % Plt Count 201 (150-450) K/mm3 MPV 11.5 H (6-9.5) fl Gran % 74.4 H (36.0-66.0) % Eos # (Auto) 0.10 (0-0.5) Absolute Lymphs (auto) 1.43 (1.0-4.6) Absolute Monos (auto) 0.74 (0.0-1.3) Lymphocytes % 16.0 L (24.0-44.0) % Monocytes % 8.3 (0.0-12.0) % Eosinophils % 1.1 (0.00-5.0) % Basophils % 0.2 (0.0-0.4) % Absolute Granulocytes 6.67 (1.4-6.9) Basophils # 0.02 (0-0.4) Sodium 142 (137-145) mmol/L Potassium 3.9 (3.5-5.1) mmol/L Chloride 105 (98-107) mmol/L Carbon Dioxide 27 (22-30) mmol/L Anion Gap 13.3 (5-15) MEQ/L BUN 17 (9-20) mg/dL Creatinine 1.39 H (0.66-1.25) mg/dL Estimated GFR 54.0 ML/MIN Glucose 130 H (74-106) mg/dL Calcium 9.3 (8.4-10.2) mg/dL Total Bilirubin 1.20 (0.2-1.3) mg/dL AST 20 (17-59) U/L ALT 23 (0-50) U/L Alkaline Phosphatase 101 (38-126) U/L Serum Total Protein 6.8 (6.3-8.2) g/dL Albumin 3.9 (3.5-5.0) g/dL Urine Color YELLOW (YELLOW) Urine Appearance CLEAR (CLEAR) Urine pH 6.0 (5-6) Ur Specific [place] 1.008 (1.005-1.025) Urine Protein NEGATIVE (Negative) Urine Ketones NEGATIVE (NEGATIVE) Urine Blood NEGATIVE (0-5) Jorge/ul Urine Nitrite NEGATIVE (NEGATIVE) Urine Bilirubin NEGATIVE (NEGATIVE) Urine Urobilinogen NEGATIVE (0-1) mg/dL Ur Leukocyte Esterase NEGATIVE (NEGATIVE) Urine WBC (Auto) 0-2 (0-5) /HPF Urine RBC (Auto) 0-2 (0-2) /HPF U Epithel Cells (Auto) NONE (FEW) /HPF Urine Bacteria (Auto) NONE (NEGATIVE) /HPF Urine Mucus (Auto) SLIGHT (NEGATIVE) /HPF Urine Culture Reflexed NO (NO) Urine Glucose NEGATIVE (NEGATIVE) mg/dL - Progress Progress Note: 01/30/19 18:57 MELGAR CATHETER Counseled pt/family regarding: lab results, diagnosis, need for follow-up, rad results - Departure Time of Disposition: 19:45 Departure Disposition: Home Clinical Impression: ACUTE URINARY RETENTION, EXTERNAL RECTAL HEMORRHOIDS Condition: Stable Critical Care Time: No Referrals: MAXIMUS STEWART [Primary Care Provider] - Additional Instructions: MAINTAIN MELGAR AND LEG BAG UNTIL EVALUATED BY FAMILY PHYSICIAN. CONSULT YOUR PRIMARY CARE PROVIDER FOR REFERRAL TO UROLOGIST.ANUSOL HC SUPPOSITORY PER RECTUM EVERY 12 HOURS FOR RECTAL PAIN. CONTINUE ALL CURRENT MEDICATIONS. Prescriptions: Hydrocortisone Acetate [Anusol-Hc] 25 mg RC Q12H PRN PRN 5 Days #10 supp.rect PRN Reason: PAIN, SWELLING
[2019-01-30] MEDS ORDERED: Sodium Chloride 0.9% 1000 ML 1,000 ML ONE (17:07)
[2019-01-30 17:20] LABS: Appearance CLEAR (CLEAR); Bilirubin NEGATIVE (NEGATIVE); Blood NEGATIVE Ery/ul (0-5); Glucose NEGATIVE (NEGATIVE); Ketones NEGATIVE (NEGATIVE); Leukocyte Esterase NEGATIVE (NEGATIVE); Mucus SLIGHT /HPF (NEGATIVE); Nitrite NEGATIVE (NEGATIVE); Protein,Urine Dip NEGATIVE (Negative); RBC 0-2 /HPF (0-2); Specific Gravity 1.008 (1.005-1.025); Urobilinogen NEGATIVE mg/dL (0-1); WBC 0-2 /HPF (0-5)
[2019-01-30 18:00] LABS: BASOPHIL % 0.2 % (0.0-0.4); Basophil (Absolute #) 0.02 (0-0.4); Eosinophil % 1.1 % (0.00-5.0); Granulocyte Absolute (ANC) 6.67 (1.4-6.9); Granulocytes % 74.4 % (36.0-66.0); Hemoglobin 13.5 gm/dl (12.5-18.0); Lymphocyte (Absolute #) 1.43 (1.0-4.6); Mean Cell Volume 94.9 fl (78-100); Mean Corpuscular Hemoglobin 31.3 pg (26-32); Mean Corpuscular Hgb Concent. 32.9 g/dl (32-36); Mean Platelet Volume 11.5 fl (6-9.5); Monocyte (Absolute #) 0.74 (0.0-1.3); Monocytes % 8.3 % (0.0-12.0); Platelet Count 201 K/mm3 (150-450); Red Blood Count 4.32 M/mm3 (4.1-5.6); Red Cell Distribution Width 13.5 % (11.5-14.0)
[2019-01-30 18:17] LABS: ALBUMIN 3.9 g/dL (3.5-5.0); ANION GAP 13.3 MEQ/L (5-15); BILIRUBIN,TOTAL 1.2 mg/dL (0.2-1.3); Calcium 9.3 mg/dL (8.4-10.2); Creatinine 1 1.39 mg/dL (0.66-1.25); Potassium 3.9 mmol/L (3.5-5.1); Total Protein 6.8 g/dL (6.3-8.2)
[2019-01-30 20:17] VITALS: BP 105/65; PULSE 79; O2SAT 98
--- NOTE | 2019-02-02 15:12 | XRAY ---
Indication: Lower pelvic pain. Diarrhea. Status post laparoscopic cholecystectomy one week. Multiple contiguous axial images obtained through the abdomen and pelvis without contrast as ordered. Comparison: December 09, 2018. Lung bases are clear. Heart is not enlarged. Stable small hiatal hernia. Noncontrasted stomach and bowel loops again nonobstructed. Again scattered colonic diverticulosis without diverticulitis. Spleen remains enlarged today 13.8 cm again with calcified granulomas. Interval cholecystectomy with now small right upper quadrant abdominal wall air and tiny subdiaphragmatic air bubbles. No free fluid. Stable hepatomegaly, nonobstructing bilateral renal micro-calculi, bilateral renal cysts, and enlarged prostate gland. Urinary bladder is now significantly distended either outlet obstruction versus neurogenic bladder. Subsequent mildly prominent ureters and mild hydronephrosis bilaterally. Remaining liver, pancreas, adrenal glands, spleen, adrenal glands, and aorta appear unremarkable for noncontrast exam. Osseous structures intact again with moderate degenerative changes throughout the thoracolumbar spine. Impression: 1. New significantly distended urinary bladder with now prominent upper collecting systems. Rule out urinary bladder outlet obstruction versus neurogenic bladder. 2. Status post cholecystectomy including small right upper quadrant abdominal wall air and tiny intra abdominal air bubbles. 3. Stable hiatal hernia, colonic diverticulosis, hepatosplenomegaly, nonobstructing bilateral renal micro-calculi, bilateral renal cysts, and enlarged prostate gland. 2. Remaining CT abdomen/pelvis without contrast exam is negative. CT DI 23.68
== END 2019-01-30 20:17 | disposition home or self-care (01) ==
LOC: ED 16:20
DX: R33.9 Retention of urine, unspecified (principal); K64.4 Residual hemorrhoidal skin tags; Z79.899 Other long term (current) drug therapy; Z87.442 Personal history of urinary calculi; J44.9 Chronic obstructive pulmonary disease, unspecified
CPT/HCPCS: 36000; 36415; 51702; 74176; 80053; 81001; 85025; 87040; 96360; 96361; 99284

== ENCOUNTER 2019-02-07 15:19 | Emergency (ER) | payer MEDICARE ==
[2019-02-07 15:42] VITALS: PULSE 96
--- NOTE | 2019-02-07 16:20 | ERPHSYRPT ---
- History of Present Illness Time Seen by Provider: 02/07/19 16:08 Source: patient Exam Limitations: no limitations Patient Subjective Stated Complaint: Pt states "I had gall bladder surgery two weeks ago and I could not pee after so they put in a willis and said to have it taken out 7 days later. saturday they took it out and said if I do not pee in 10 hours to get a willis put back in. I waited 30 hours and still have not urinated. " Triage Nursing Assessment: Pt alert and oriented X 3, skin pwd Pt ambualtes with an upright steady gait, able to speak in clear full sentences. PT grimacing as he ambualtes. no apparent respiratory distress. Physician History: 68-year-old white male with history of COPD, CHF, diabetes, arthritis, GERD, cardiomyopathy, enlarged spleen, Patient with cholecystectomy 2 weeks ago he states after the cholecystectomy was having problems urinating therefore he had a Willis placed he was told that the Willis need to bee stings left in for approximately 10 days and this was pulled Saturday he is states he is unable to urinate since Saturday for approximately 30 hours. He is having suprapubic discomfort on arrival he is feeling much better after placement of a Willis. He has no nausea no vomiting. Past medical history includes congestive heart failure COPD, diabetes type 2, arthritis, GERD, leaky heart muscles, cardiomyopathy, enlarged spleen Past surgical history includes cholecystectomy Social history patient denies tobacco alcohol or illicit drugs Timing/Duration: yesterday Severity: moderate Modifying Factors: Improves With: nothing Associated Symptoms: abdominal pain (suprapubic pain), other (unable to urinate for 30 hours), No nausea, No vomiting, No shortness of breath, No heartburn, No diaphoresis, No cough, No chills, No chest pain, No fever, No headaches, No loss of appetite, No malaise, No rash, No syncope, No seizure, No weakness Allergies/Adverse Reactions: Penicillins Allergy (Verified 01/30/19 16:42) Home Medications: Albuterol Sulfate [Proair Hfa] 2 puff IH Q4HPRN PRN 02/20/13 [History] Metoprolol Tartrate 50 mg [Lopressor 50 MG] 25 mg PO BID 02/20/13 [History ] Omeprazole 40 mg PO DAILY 02/20/13 [History] Enalapril Maleate 10 mg [Vasotec 10 MG] 10 mg PO BID 03/13/14 [History] Furosemide 80 mg PO DAILY 03/13/14 [History] Montelukast Sodium 10 mg [Singulair 10 MG] 10 mg PO HS 03/13/14 [History] Potassium Chloride [Klor-Con 8] 8 meq PO BID 03/13/14 [History] Fluticasone/Salmeterol [Advair 250-50 Diskus] 1 each IH BID 12/09/18 [History] Hydrocodone/APAP 5-325 Tab^^^ [[place] 5-325 Tablet^^^] 1 tab PO Q4H PRN MDD 2 [History] Ondansetron HCl [Zofran] 4 mg PO Q4H PRN 01/30/19 [History] Hx Tetanus, Diphtheria Vaccination/Date Given: No Hx Influenza Vaccination/Date Given: Yes Hx Pneumococcal Vaccination/Date Given: Yes Immunizations Up to Date: Yes - Review of Systems Constitutional: No Fever, No Chills Eyes: No Symptoms Ears, Nose, & Throat: No Symptoms Respiratory: No Cough, No Dyspnea Cardiac: No Chest Pain, No Edema, No Syncope Abdominal/Gastrointestinal: Abdominal Pain (suprapubic pain), No Nausea, No Vomiting, No Diarrhea, No Constipation, No Hematochezia, No Melena, No Dysphagia , No Appetite Changes Genitourinary Symptoms: Urinary Retention Musculoskeletal: No Back Pain, No Neck Pain Skin: No Rash Neurological: No Dizziness, No Focal Weakness, No Sensory Changes Psychological: No Symptoms Endocrine: No Symptoms All Other Systems: Reviewed and Negative - Past Medical History Pertinent Past Medical History: Yes Neurological History: No Pertinent History ENT History: No Pertinent History Cardiac History: Congestive Heart Failure, Other Respiratory History: COPD Endocrine Medical History: Diabetes Type II Musculoskeletal History: Arthritis GI Medical History: GERD History: No Pertinent History Psycho-Social History: No Pertinent History Male Reproductive Disorders: No Pertinent History Other Medical History: weak heart muscles, cardiomyopathy, enlarged spleen - Past Surgical History Past Surgical History: Yes Neuro Surgical History: No Pertinent History Cardiac: Cardiac Catheterization Respiratory: No Pertinent History Gastrointestinal: No Pertinent History, Cholecystectomy Genitourinary: No Pertinent History Musculoskeletal: No Pertinent History Male Surgical History: No Pertinent History Other Surgical History: thomas - Social History Smoking Status: Never smoker Exposure to second hand smoke: No Drug Use: none Patient Lives Alone: No - Nursing Vital Signs Nursing Vital Signs: Initial Vital Signs Temperature 98.0 F 02/07/19 15:27 Pulse Rate 96 H 02/07/19 15:27 Respiratory Rate 18 02/07/19 15:27 Blood Pressure 97/58 02/07/19 15:27 O2 Sat by Pulse Oximetry 95 02/07/19 15:27 Pain Scale Pain Intensity 6 - Physical Exam General Appearance: no apparent distress (patient with mild to moderate distress on arrival however markedly improved after placement of Willis) Eye Exam: PERRL/EOMI, eyes nml inspection Ears, Nose, Throat Exam: normal ENT inspection, TMs normal, pharynx normal, moist mucous membranes Neck Exam: normal inspection, non-tender, supple, full range of motion Respiratory Exam: normal breath sounds, lungs clear, No respiratory distress Cardiovascular Exam: regular rate/rhythm, normal heart sounds, normal peripheral pulses, capillary refill <2 sec Gastrointestinal/Abdomen Exam: soft, normal bowel sounds, tenderness (mild suprapubic tendernessresolved after placement of willis), No distention, No mass , No guarding, No ecchymosis, No pulsatile mass Back Exam: normal inspection, normal range of motion, No CVA tenderness, No vertebral tenderness Extremity Exam: normal inspection, normal range of motion, pelvis stable Neurologic Exam: alert, oriented x 3, cooperative, normal mood/affect, nml cerebellar function, nml station & gait, sensation nml, No motor deficits Skin Exam: normal color, warm, dry, No rash Lymphatic Exam: No adenopathy SpO2 Interpretation: normal (95%) SpO2: 95 - Course Nursing assessment & vital signs reviewed: Yes Ordered Tests: Active Orders 24 hr Category Date Time Status Catheter-[place] Willis STAT Care 02/07/19 15:54 Active UA W/RFX UR CULTURE Stat Lab 02/07/19 16:48 Completed Lab/Rad Data: Laboratory Results 02/07/19 Range/Units 16:48 Urine Color YELLOW (YELLOW) Urine Appearance CLEAR (CLEAR) Urine pH 5.0 (5-6) Ur Specific [place] 1.016 (1.005-1.025) Urine Protein NEGATIVE (Negative) Urine Ketones NEGATIVE (NEGATIVE) Urine Blood NEGATIVE (0-5) Jorge/ul Urine Nitrite NEGATIVE (NEGATIVE) Urine Bilirubin NEGATIVE (NEGATIVE) Urine Urobilinogen NEGATIVE (0-1) mg/dL Ur Leukocyte Esterase NEGATIVE (NEGATIVE) Urine WBC (Auto) 0-2 (0-5) /HPF Urine RBC (Auto) 16-25 (0-2) /HPF U Epithel Cells (Auto) NONE (FEW) /HPF Urine Bacteria (Auto) RARE (NEGATIVE) /HPF Urine Mucus (Auto) SLIGHT (NEGATIVE) /HPF Urine Culture Reflexed NO (NO) Urine Glucose NEGATIVE (NEGATIVE) mg/dL - Progress Progress: improved Progress Note: 02/07/19 16:19 68-year-old white male who had cholecystectomy 2 weeks ago with urinary retention. Patient with Willis removed on Saturday yesterday patient states he has not been able to urinate since removal of Willis is having suprapubic discomfort. Willis is placed by the patient's nurse here in the emergency room patient is feeling markedly improved. I have sent patient's urine off for urinalysis patient has produced over 1 L of urine. Will plan to send patient home with leg bag. Will evaluate urinalysis when available. . 02/07/19 17:17 patient is stable, will discharge with willis 02/07/19 17:18 - Departure Time of Disposition: 17:17 Departure Disposition: Home Clinical Impression: Urinary retention Condition: Fair Critical Care Time: No Referrals: MAXIMUS STEWART [Primary Care Provider] - Instructions: Urinary Retention (DC) Additional Instructions: Return home. Follow-up with your family doctor Saturday. Return for acute distress or for severe symptoms.
[2019-02-07 16:51] LABS: Appearance CLEAR (CLEAR); Bacteria RARE /HPF (NEGATIVE); Bilirubin NEGATIVE (NEGATIVE); Blood NEGATIVE Ery/ul (0-5); Glucose NEGATIVE (NEGATIVE); Ketones NEGATIVE (NEGATIVE); Leukocyte Esterase NEGATIVE (NEGATIVE); Mucus SLIGHT /HPF (NEGATIVE); Nitrite NEGATIVE (NEGATIVE); Protein,Urine Dip NEGATIVE (Negative); Specific Gravity 1.016 (1.005-1.025); Urobilinogen NEGATIVE mg/dL (0-1); WBC 0-2 /HPF (0-5)
[2019-02-07 17:46] VITALS: BP 92/63; O2SAT 98
== END 2019-02-07 18:19 | disposition home or self-care (01) ==
LOC: ED 15:19
DX: I50.9 Heart failure, unspecified (principal); J44.9 Chronic obstructive pulmonary disease, unspecified; E11.9 Type 2 diabetes mellitus without complications; K21.9 Gastro-esophageal reflux disease without esophagitis; R16.1 Splenomegaly, not elsewhere classified; Z79.899 Other long term (current) drug therapy
CPT/HCPCS: 51702; 81001; 99284

== ENCOUNTER 2019-02-21 08:09 | Emergency (ER) | payer MEDICARE ==
--- NOTE | 2019-02-21 08:33 | ERPHSYRPT ---
- History of Present Illness Time Seen by Provider: 02/21/19 08:16 Source: patient, other (spouse) Exam Limitations: no limitations Physician History: Pt has been having a Sosa catheter since 01/26/19 since after his lap. cholecystectomy. He has been on PO Cipro currently, developed lower abdominal pain since last night, since his catheter has not been draining. He denies fever , nausea, vomiting, diarrhea, other complaints. He has an appointment in 2 weeks with Urologist. Timing/Duration: yesterday Activites at Onset: none Quality: fullness Onset Location: suprapubic Severity of Pain-Max: moderate Severity of Pain-Current: moderate Modifying Factors: Improves With: nothing Associated Symptoms: abdominal pain Prior abdominal problems: none Sexual intercourse history: non-contributory Allergies/Adverse Reactions: Penicillins Allergy (Verified 01/30/19 16:42) Home Medications: Albuterol Sulfate [Proair Hfa] 2 puff IH Q4HPRN PRN 02/20/13 [History] Metoprolol Tartrate 50 mg [Lopressor 50 MG] 25 mg PO BID 02/20/13 [History ] Omeprazole 40 mg PO DAILY 02/20/13 [History] Enalapril Maleate 10 mg [Vasotec 10 MG] 10 mg PO BID 03/13/14 [History] Furosemide 80 mg PO DAILY 03/13/14 [History] Montelukast Sodium 10 mg [Singulair 10 MG] 10 mg PO HS 03/13/14 [History] Potassium Chloride [Klor-Con 8] 8 meq PO BID 03/13/14 [History] Fluticasone/Salmeterol [Advair 250-50 Diskus] 1 each IH BID 12/09/18 [History] Hydrocodone/APAP 5-325 Tab^^^ [[place] 5-325 Tablet^^^] 1 tab PO Q4H PRN MDD 2 [History] Ondansetron HCl [Zofran] 4 mg PO Q4H PRN 01/30/19 [History] Hx Tetanus, Diphtheria Vaccination/Date Given: No Hx Influenza Vaccination/Date Given: Yes Hx Pneumococcal Vaccination/Date Given: Yes - Past Medical History Pertinent Past Medical History: Yes Neurological History: No Pertinent History ENT History: No Pertinent History Cardiac History: Congestive Heart Failure, Other Respiratory History: COPD Endocrine Medical History: Diabetes Type II Musculoskeletal History: Arthritis GI Medical History: GERD History: No Pertinent History Psycho-Social History: No Pertinent History Male Reproductive Disorders: No Pertinent History Other Medical History: weak heart muscles, cardiomyopathy, enlarged spleen - Past Surgical History Past Surgical History: Yes Neuro Surgical History: No Pertinent History Cardiac: Cardiac Catheterization Respiratory: No Pertinent History Gastrointestinal: No Pertinent History, Cholecystectomy Genitourinary: No Pertinent History Musculoskeletal: No Pertinent History Male Surgical History: No Pertinent History Other Surgical History: thomas - Social History Smoking Status: Never smoker Exposure to second hand smoke: No Drug Use: none Patient Lives Alone: No - Review of Systems Constitutional: No Symptoms Ears, Nose, & Throat: No Symptoms Respiratory: No Symptoms Cardiac: No Symptoms Abdominal/Gastrointestinal: Abdominal Pain Genitourinary Symptoms: Urinary Retention Musculoskeletal: No Symptoms Neurological: No Symptoms All Other Systems: Reviewed and Negative - Nursing Vital Signs Nursing Vital Signs: Initial Vital Signs Temperature 97.7 F 02/21/19 08:10 Pulse Rate 96 H 02/21/19 08:10 Respiratory Rate 18 02/21/19 08:10 Blood Pressure 103/65 02/21/19 08:10 O2 Sat by Pulse Oximetry 96 02/21/19 08:10 Pain Scale Pain Intensity 4 - Physical Exam General Appearance: no apparent distress Eye Exam: eyes nml inspection Ears, Nose, Throat Exam: normal ENT inspection Neck Exam: normal inspection, non-tender Respiratory Exam: normal breath sounds, lungs clear, airway intact, No chest tenderness Cardiovascular Exam: regular rate/rhythm, normal heart sounds, normal peripheral pulses, No murmur Gastrointestinal/Abdomen Exam: soft, normal bowel sounds, tenderness (suprapubic ), distention, No guarding, No rebound Male Genital Exam: normal genitalia (Sosa catheter inserted, not draining) Back Exam: normal inspection, No CVA tenderness Extremity Exam: normal inspection Neurologic Exam: alert, oriented x 3, cooperative, normal mood/affect Skin Exam: normal color, warm, dry SpO2 Interpretation: normal O2 Delivery: Room Air - Course Nursing assessment & vital signs reviewed: Yes Ordered Tests: Active Orders 24 hr Category Date Time Status Catheter-[place] Sosa STAT Care 02/21/19 08:27 Active UA W/RFX UR CULTURE Stat Lab 02/21/19 08:45 Completed Lab/Rad Data: Laboratory Results 02/21/19 Range/Units 08:45 Urine Color YELLOW (YELLOW) Urine Appearance CLEAR (CLEAR) Urine pH 5.0 (5-6) Ur Specific [place] 1.016 (1.005-1.025) Urine Protein NEGATIVE (Negative) Urine Ketones NEGATIVE (NEGATIVE) Urine Blood NEGATIVE (0-5) Jorge/ul Urine Nitrite NEGATIVE (NEGATIVE) Urine Bilirubin NEGATIVE (NEGATIVE) Urine Urobilinogen NEGATIVE (0-1) mg/dL Ur Leukocyte Esterase NEGATIVE (NEGATIVE) Urine WBC (Auto) 0-2 (0-5) /HPF Urine RBC (Auto) 0-2 (0-2) /HPF Urine Bacteria (Auto) NONE (NEGATIVE) /HPF Urine Mucus (Auto) SLIGHT (NEGATIVE) /HPF Urine Culture Reflexed NO (NO) Urine Glucose NEGATIVE (NEGATIVE) mg/dL - Progress Progress: improved Progress Note: 02/21/19 08:33 Sosa catheter changed, immediately drained 950 ml clear urine, it was sent to the lab. 02/21/19 09:34 Urine test reviewed, patient is being discharged in stable condition to follow up with his physician next week. - Departure Departure Disposition: Home Clinical Impression: Urinary retention Sosa catheter problem Qualifiers: Encounter type: initial encounter Qualified Code(s): T83.9XXA - Unspecified complication of genitourinary prosthetic device, implant and graft, initial encounter Condition: Stable Critical Care Time: No Referrals: MAXIMUS STEWART [Primary Care Provider] - Instructions: Urinary Retention (DC), How to Care for Your Sosa Catheter, Male Additional Instructions: Continue Sosa care as directed and complete PO Cipro, drink plenty of fluids, follow up with your physician next week, and with Urologist as scheduled! Return if severe pain, bleeding, vomiting, fever> 102 F!
[2019-02-21 08:45] VITALS: O2SAT 96
[2019-02-21 09:19] LABS: Appearance CLEAR (CLEAR); Bilirubin NEGATIVE (NEGATIVE); Blood NEGATIVE Ery/ul (0-5); Glucose NEGATIVE (NEGATIVE); Ketones NEGATIVE (NEGATIVE); Leukocyte Esterase NEGATIVE (NEGATIVE); Mucus SLIGHT /HPF (NEGATIVE); Nitrite NEGATIVE (NEGATIVE); Protein,Urine Dip NEGATIVE (Negative); RBC 0-2 /HPF (0-2); Specific Gravity 1.016 (1.005-1.025); Urobilinogen NEGATIVE mg/dL (0-1); WBC 0-2 /HPF (0-5)
[2019-02-21 09:47] VITALS: BP 93/63; PULSE 69
== END 2019-02-21 09:50 | disposition home or self-care (01) ==
LOC: ED 08:09
DX: R33.9 Retention of urine, unspecified (principal); T83.9XXA Unspecified complication of genitourinary prosthetic device, implant and graft, initial encounter; I50.9 Heart failure, unspecified; J44.9 Chronic obstructive pulmonary disease, unspecified; E11.9 Type 2 diabetes mellitus without complications; M19.90 Unspecified osteoarthritis, unspecified site; K21.9 Gastro-esophageal reflux disease without esophagitis; R16.1 Splenomegaly, not elsewhere classified; Z79.899 Other long term (current) drug therapy
CPT/HCPCS: 51702; 81001; 99283

== ENCOUNTER 2019-03-09 03:36 | Emergency (ER) | payer MEDICARE ==
[2019-03-09] MEDS ORDERED: Sodium Chloride 0.9% 1000 ML 1,000 ML IV STA (04:15)
[2019-03-09] MEDS ORDERED: Sodium Chloride 0.9% 1000 ML 1,000 ML ONE (04:28)
[2019-03-09 04:39] LABS: BASOPHIL % 0.3 % (0.0-0.4); Basophil (Absolute #) 0.02 (0-0.4); Eosinophil % 2.4 % (0.00-5.0); Eosinophil (Absolute #) 0.15 (0-0.5); Granulocyte Absolute (ANC) 3.74 (1.4-6.9); Granulocytes % 60.7 % (36.0-66.0); Hematocrit 35.7 % (42-50); Hemoglobin 11.7 gm/dl (12.5-18.0); Lymphocyte (Absolute #) 1.61 (1.0-4.6); Lymphocytes % 26.1 % (24.0-44.0); Mean Cell Volume 94.4 fl (78-100); Mean Corpuscular Hgb Concent. 32.8 g/dl (32-36); Mean Platelet Volume 11.1 fl (6-9.5); Monocyte (Absolute #) 0.65 (0.0-1.3); Monocytes % 10.5 % (0.0-12.0); Platelet Count 165 K/mm3 (150-450); Red Blood Count 3.78 M/mm3 (4.1-5.6); Red Cell Distribution Width 13.4 % (11.5-14.0); White Blood Count 6.2 K/mm3 (4.0-10.5)
[2019-03-09 04:40] LABS: Mean Corpuscular Hemoglobin 30.9 pg (26-32)
[2019-03-09 04:45] LABS: Appearance CLOUDY (CLEAR); Bacteria FEW /HPF (NEGATIVE); Bilirubin NEGATIVE (NEGATIVE); Blood LARGE Ery/ul (0-5); Glucose NEGATIVE (NEGATIVE); Ketones NEGATIVE (NEGATIVE); Leukocyte Esterase SMALL (NEGATIVE); Mucus SLIGHT /HPF (NEGATIVE); Nitrite NEGATIVE (NEGATIVE); Protein,Urine Dip >=500 (Negative); Specific Gravity 1.019 (1.005-1.025); Urobilinogen NEGATIVE mg/dL (0-1)
[2019-03-09 04:46] LABS: Epithelial Cells FEW /HPF (FEW); RBC >101 /HPF (0-2)
[2019-03-09 04:49] LABS: ALBUMIN 3.4 g/dL (3.5-5.0); ANION GAP 13.9 MEQ/L (5-15); BILIRUBIN,TOTAL 0.5 mg/dL (0.2-1.3); Calcium 8.8 mg/dL (8.4-10.2); Creatinine 1 1.43 mg/dL (0.66-1.25); Potassium 3.7 mmol/L (3.5-5.1); Total Protein 6.3 g/dL (6.3-8.2)
[2019-03-09 05:00] VITALS: PULSE 70
[2019-03-09] MEDS ORDERED: ROCEPHIN 1 Gm-D5w 50 ml Bag** 1 G/50 ML IVPB IV STA (05:17)
[2019-03-09] MEDS ORDERED: ROCEPHIN 1 Gm-D5w 50 ml Bag** 1 G/50 ML IVPB IV ONE (05:24)
--- NOTE | 2019-03-09 05:40 | ERPHSYRPT ---
- History of Present Illness Source: patient Exam Limitations: no limitations Patient Subjective Stated Complaint: pt states he has had decreased urine from his catheter and strong smell today. states he has been increasingly uncomfortable and has had urge to urinate. Triage Nursing Assessment: pt alert and oriented, answers questions approp. pt ambulatory with steady gait noted. respirations nonlabored with lungs cta. willis cath in place with cloudy brown urine noted, small clots noted in urine. Physician History: Pt is a 68 y/o male that is having TURP on Saturday, and has a willis secondary to urinary retention. Pt states, he noted decrease in urine out and change in its color, with some tenderness in the supra pubic area. He felt that he has UTI, and presented to the ED. Pt is on Bactrim for UTI, that was given him by [employer] a couple of days ago. Timing/Duration: today Activites at Onset: none Quality: aching Onset Location: suprapubic Severity of Pain-Max: mild Severity of Pain-Current: mild Modifying Factors: Improves With: nothing Associated Symptoms: other (decrease in urine out put and change in color.) Allergies/Adverse Reactions: Penicillins Allergy (Verified 01/30/19 16:42) Home Medications: Albuterol Sulfate [Proair Hfa] 2 puff IH Q4HPRN PRN 02/20/13 [History] Metoprolol Tartrate 50 mg [Lopressor 50 MG] 25 mg PO BID 02/20/13 [History ] Omeprazole 40 mg PO DAILY 02/20/13 [History] Enalapril Maleate 10 mg [Vasotec 10 MG] 10 mg PO BID 03/13/14 [History] Furosemide 80 mg PO DAILY 03/13/14 [History] Montelukast Sodium 10 mg [Singulair 10 MG] 10 mg PO HS 03/13/14 [History] Potassium Chloride [Klor-Con 8] 8 meq PO BID 03/13/14 [History] Fluticasone/Salmeterol [Advair 250-50 Diskus] 1 each IH BID 12/09/18 [History] Hydrocodone/APAP 5-325 Tab^^^ [[place] 5-325 Tablet^^^] 1 tab PO Q4H PRN MDD 2 [History] Ondansetron HCl [Zofran] 4 mg PO Q4H PRN 01/30/19 [History] Hx Tetanus, Diphtheria Vaccination/Date Given: No Hx Influenza Vaccination/Date Given: Yes Hx Pneumococcal Vaccination/Date Given: Yes Immunizations Up to Date: No - Past Medical History Pertinent Past Medical History: Yes Neurological History: No Pertinent History ENT History: No Pertinent History Cardiac History: Congestive Heart Failure, Other Respiratory History: COPD Endocrine Medical History: Diabetes Type II Musculoskeletal History: Arthritis GI Medical History: GERD History: No Pertinent History Psycho-Social History: No Pertinent History Male Reproductive Disorders: Prostate Problems Other Medical History: weak heart muscles, cardiomyopathy, enlarged spleen - Past Surgical History Past Surgical History: Yes Neuro Surgical History: No Pertinent History Cardiac: Cardiac Catheterization Respiratory: No Pertinent History Gastrointestinal: No Pertinent History, Cholecystectomy Genitourinary: No Pertinent History Musculoskeletal: No Pertinent History Male Surgical History: No Pertinent History Other Surgical History: thomas - Social History Smoking Status: Never smoker Exposure to second hand smoke: No Drug Use: none Patient Lives Alone: No - Review of Systems Constitutional: No Fever, No Chills Eyes: No Symptoms Ears, Nose, & Throat: No Symptoms Respiratory: No Cough, No Dyspnea Cardiac: No Chest Pain, No Edema, No Syncope Abdominal/Gastrointestinal: Abdominal Pain (Suprapubic) Genitourinary Symptoms: Urinary Retention, Other (change in urine color) Musculoskeletal: No Back Pain, No Neck Pain Skin: No Rash Neurological: No Dizziness, No Focal Weakness, No Sensory Changes - Nursing Vital Signs Nursing Vital Signs: Initial Vital Signs Pulse Rate 70 03/09/19 04:59 Respiratory Rate 16 03/09/19 04:59 Blood Pressure 95/61 03/09/19 04:59 O2 Sat by Pulse Oximetry 97 03/09/19 04:59 Pain Scale Pain Intensity 3 - Physical Exam General Appearance: no apparent distress, alert Eye Exam: PERRL/EOMI Ears, Nose, Throat Exam: pharynx normal, moist mucous membranes Neck Exam: normal inspection, supple Respiratory Exam: normal breath sounds, lungs clear Cardiovascular Exam: regular rate/rhythm, No edema Extremity Exam: normal inspection, normal range of motion, No pedal edema Neurologic Exam: alert, oriented x 3, cooperative, sensation nml, No motor deficits SpO2: 97 - Course Nursing assessment & vital signs reviewed: Yes Ordered Tests: Active Orders 24 hr Category Date Time Status CBC W DIFF Stat Lab 03/09/19 04:36 Completed CMP Stat Lab 03/09/19 04:36 Completed CULTURE,URINE Stat Lab 03/09/19 04:36 Received UA W/RFX UR CULTURE Stat Lab 03/09/19 04:36 Completed Medication Summary Discontinued Medications Generic Name Dose Route Start Last Admin Trade Name Radha PRN Reason Stop Dose Admin Sodium Chloride 1,000 mls @ 999 mls/hr 03/09/19 04:15 03/09/19 05:54 Sodium Chloride 0.9% 1000 Ml IV 03/09/19 05:15 Infused .Q1H1M STA Infusion Sodium Chloride Confirm 03/09/19 04:28 Sodium Chloride 0.9% 1000 Ml Administered 03/09/19 04:29 Dose 1,000 mls @ ud .ROUTE .STK-MED ONE Ceftriaxone Sodium/Dextrose 1 g in 50 mls @ 100 mls/hr 03/09/19 05:17 05:28 Rocephin 1 Gm-D5w 50 Ml Bag IV 03/09/19 05:46 100 ml/hr STAT STA 100 mls/hr Administration Ceftriaxone Sodium/Dextrose Confirm 03/09/19 05:24 Rocephin 1 Gm-D5w 50 Ml Bag Administered 03/09/19 05:25 Dose 1 g in 50 mls @ ud IV .STK-MED ONE Lab/Rad Data: Laboratory Result [facility] 03/09/19 04:36 03/09/19 04:36 Laboratory Results 03/09/19 03/09/19 03/09/19 Range/Units 04:36 04:36 04:36 WBC 6.2 (4.0-10.5) K/mm3 RBC 3.78 L (4.1-5.6) M/mm3 Hgb 11.7 L (12.5-18.0) gm/dl Hct 35.7 L (42-50) % MCV 94.4 (78-100) fl MCH 30.9 (26-32) pg MCHC 32.8 (32-36) g/dl RDW 13.4 (11.5-14.0) % Plt Count 165 (150-450) K/mm3 MPV 11.1 H (6-9.5) fl Gran % 60.7 (36.0-66.0) % Eos # (Auto) 0.15 (0-0.5) Absolute Lymphs (auto) 1.61 (1.0-4.6) Absolute Monos (auto) 0.65 (0.0-1.3) Lymphocytes % 26.1 (24.0-44.0) % Monocytes % 10.5 (0.0-12.0) % Eosinophils % 2.4 (0.00-5.0) % Basophils % 0.3 (0.0-0.4) % Absolute Granulocytes 3.74 (1.4-6.9) Basophils # 0.02 (0-0.4) Sodium 139 (137-145) mmol/L Potassium 3.7 (3.5-5.1) mmol/L Chloride 106 (98-107) mmol/L Carbon Dioxide 23 (22-30) mmol/L Anion Gap 13.9 (5-15) MEQ/L BUN 18 (9-20) mg/dL Creatinine 1.43 H (0.66-1.25) mg/dL Estimated GFR 52.3 ML/MIN Glucose 121 H (74-106) mg/dL Calcium 8.8 (8.4-10.2) mg/dL Total Bilirubin 0.50 (0.2-1.3) mg/dL AST 17 (17-59) U/L ALT 19 (0-50) U/L Alkaline Phosphatase 77 (38-126) U/L Serum Total Protein 6.3 (6.3-8.2) g/dL Albumin 3.4 L (3.5-5.0) g/dL Urine Color ELAINE (YELLOW) Urine Appearance CLOUDY (CLEAR) Urine pH 6.0 (5-6) Ur Specific [place] 1.019 (1.005-1.025) Urine Protein >=500 (Negative) Urine Ketones NEGATIVE (NEGATIVE) Urine Blood LARGE (0-5) Jorge/ul Urine Nitrite NEGATIVE (NEGATIVE) Urine Bilirubin NEGATIVE (NEGATIVE) Urine Urobilinogen NEGATIVE (0-1) mg/dL Ur Leukocyte Esterase SMALL (NEGATIVE) Urine WBC (Auto) 3-5 (0-5) /HPF Urine RBC (Auto) >101 (0-2) /HPF U Epithel Cells (Auto) FEW (FEW) /HPF Urine Bacteria (Auto) FEW (NEGATIVE) /HPF Urine Mucus (Auto) SLIGHT (NEGATIVE) /HPF Urine Culture Reflexed YES (NO) Urine Glucose NEGATIVE (NEGATIVE) mg/dL - Progress Progress: improved Progress Note: 03/09/19 05:40 Pt was placed on IVF. UA did show UTI, and Ceftriaxone IV was given. Willis was changed. 03/09/19 06:09 Pt is feeling much better now. He was instructed not to take his Bactrim, as his sCr is increased. Omnicef will be e-scribed. Pt should f/u with his Urologist. Counseled pt/family regarding: need for follow-up - Departure Departure Disposition: Home Clinical Impression: UTI (urinary tract infection), Urinary retention due to benign prostatic hyperplasia Condition: Stable Critical Care Time: No Referrals: MAXIMUS STEWART [Primary Care Provider] - Additional Instructions: F/U with Urology. Take Omnicef as ordered. Prescriptions: Cefdinir [Omnicef] 300 mg PO BID 7 Days #14 capsule
[2019-03-09 06:28] VITALS: BP 101/62; O2SAT 98
== END 2019-03-09 06:28 | disposition home or self-care (01) ==
LOC: ED 03:36
DX: N39.0 Urinary tract infection, site not specified (principal); N40.1 Benign prostatic hyperplasia with lower urinary tract symptoms; R33.8 Other retention of urine; J44.9 Chronic obstructive pulmonary disease, unspecified; M19.90 Unspecified osteoarthritis, unspecified site; K21.9 Gastro-esophageal reflux disease without esophagitis; R16.1 Splenomegaly, not elsewhere classified
CPT/HCPCS: 36000; 36415; 80053; 81001; 85025; 87086; 96360; 96365; 99284; J0696

== ENCOUNTER 2020-07-04 06:02 | Day surgery (SDC) | payer MEDICARE ==
[2020-07-04] MEDS ORDERED: DIPRIVAN 200 MG/20 ML IV ONE (07:28)
[2020-07-04] MEDS ORDERED: Lactated Ringers 1,000 ML IV SCH (07:30)
[2020-07-04] MEDS ORDERED: PHENYLEPHRINE HCL ONE (07:40)
[2020-07-04 08:34] VITALS: O2SAT 95
[2020-07-04 08:42] VITALS: BP 124/70; PULSE 83
--- NOTE | 2020-07-05 08:14 | OP ---
SURGERY DATE/TIME: 07/04/2020 0700 PREOPERATIVE DIAGNOSIS: Rectal bleeding. POSTOPERATIVE DIAGNOSIS: Ascending colon polyp and moderate sigmoid diverticulosis. PROCEDURE: Colonoscopy with cold forceps biopsy. SURGEON: Dr. Russell. ANESTHESIA: MAC. Medications given by anesthesia department. HISTORY: The patient is a 69 year old white male patient who had episode of rectal bleeding that was painless a few weeks ago. He has not had any problems in the interim. He reports he had a colonoscopy several years ago which was essentially negative. The patient was felt the need to have endoscopic evaluation and he was appraised of the risks of the procedure including the risk of perforation, phlebitis, untoward reaction to medication, bleeding and missed lesions. The patient verbalized his understanding and desired to have the procedure performed. DESCRIPTION OF PROCEDURE: The patient was given the medications by the anesthesia department. He had continuous pulse oximetry, ECG monitoring, intermittent blood pressure monitoring and tidal CO2 monitoring during the examination. He was placed in the left lateral decubitus position. A digital rectal examination was performed and revealed normal anal sphincter tone, no masses and normal prostate and there was the lack of any significant hemorrhoids. The flexible Olympus pediatric colonoscope was used to intubate the rectum. A view of the colon was developed sequentially to the cecum. Upon insertion and withdrawal was noted approximately 0.5 x 1.0 cm sessile polyp in the ascending colon this is destroyed using multiple passes with cold forceps biopsy. Otherwise there was noted moderate sigmoid diverticulosis but no other mucosal lesions and no active bleeding. The scope was removed from the patient who tolerated the procedure well and was sent back to OP recovery in good condition. The prep was noted to be fair to good.
== END 2020-07-04 08:50 | disposition home or self-care (01) ==
LOC: SDC 06:02
PROVIDERS: ATTEND Family Medicine
DX: K57.30 Diverticulosis of large intestine without perforation or abscess without bleeding (principal); D12.2 Benign neoplasm of ascending colon
CPT/HCPCS: 88305; J2370; J2704

== ENCOUNTER 2021-04-24 13:26 | Emergency (ER) | payer MEDICARE ==
[2021-04-24 13:58] LABS: Absolute Neutrophil Ct (ANC) 4.36 (1.4-6.9); BASOPHIL % 0.3 % (0.0-0.4); Basophil (Absolute #) 0.02 (0-0.4); Eosinophil % 1.4 % (0.00-5.0); Hematocrit 39.3 % (42-50); Hemoglobin 12.8 gm/dl (12.5-18.0); Lymphocytes % 27.5 % (24.0-44.0); Mean Cell Volume 95.9 fl (78-100); Mean Corpuscular Hemoglobin 31.2 pg (26-32); Mean Corpuscular Hgb Concent. 32.6 g/dl (32-36); Mean Platelet Volume 11.4 fl (7.5-11.0); Monocyte (Absolute #) 0.54 (0.0-1.3); Monocytes % 7.8 % (0.0-12.0); Platelet Count 168 K/mm3 (150-450); Red Cell Distribution Width 14.3 % (11.5-14.0); White Blood Count 6.9 K/mm3 (4.0-10.5)
--- NOTE | 2021-04-24 14:02 | ERPHSYRPT ---
- History of Present Illness Source: patient Exam Limitations: no limitations Patient Subjective Stated Complaint: SOB Triage Nursing Assessment: Patient ambulated back to ED and transferred self to bed. Patient SOB with exertion noted. Patient A+O X3. Patient's skin pink, warm and dry. Patient complains of increased SOB since Saturday. Patient states he has been weaker and increased SOB with exertion. Lungs diminished throughout. Patient states he has been having a productive cough with thick white mucus. Patient denies pain or discomfort. Physician History: 70 yo wm w dyspnea x 2months. He has a mildly productive cough/lethargy/DUE wo fever. He has had his CV19 vaccine. Pt has COPD/cardiomyopathy/NAM and was on 2L O2 NC at home until 2 months ago. He denies fever/N/V/melena/hematochezia/dysuria/hematuria/abdominal pain. Timing/Duration: other (2 months) Activities at Onset: rest Severity of Dyspnea-Max: moderate Severity of Dyspnea-Current: mild Possible Cause: frequent episodes Modifying Factors: Improves With: coughing, exertion Associated Symptoms: constant, cough, edema, productive cough, No intermittent, No anxiety, No chest pain/discomfort, No fever, No insomnia, No loss of appetite, No lightheadedness, No wheezing, No weakness, No ankle swelling, No chills, No hemoptysis, No calf pain, No dizziness, No heaviness, No heart racing, No lightheadedness, No leg swelling, No muscle spasms feet, No muscle spasms hands, No painful breathing, No sweating, No tightness Allergies/Adverse Reactions: Penicillins Allergy (Verified 04/24/21 13:28) Home Medications: Albuterol Sulfate [Proair Hfa] 2 puff IH Q4HPRN PRN 02/20/13 [History] Metoprolol Tartrate 50 mg [Lopressor 50 MG] 25 mg PO BID 02/20/13 [History] Omeprazole 40 mg PO DAILY 02/20/13 [History] Enalapril Maleate 10 mg [Vasotec 10 MG] 10 mg PO BID 03/13/14 [History] Furosemide 80 mg PO DAILY 03/13/14 [History] Montelukast Sodium 10 mg [Singulair 10 MG] 10 mg PO HS 03/13/14 [History] Potassium Chloride [Klor-Con 8] 8 meq PO BID 03/13/14 [History] Fluticasone/Salmeterol [Advair 250-50 Diskus] 1 each IH BID PRN 12/09/18 [History] Hydrocodone/APAP 5-325 Tab^^^ [Bellerose 5-325 Tablet^^^] 1 tab PO Q4H PRN MDD 2 [History] Allopurinol 300 mg [Zyloprim 300 mg] 300 mg PO DAILY 06/20/20 [History] Ascorbic Acid 500 mg [Vitamin C 500 MG] 500 mg PO DAILY 06/20/20 [History] Aspirin EC 81 mg [Ecotrin 81 mg] 81 mg PO DAILY 06/20/20 [History] Glucosamine HCl/Chondro Oneil A [Glucosamin+Chondroit Chew Tab] 1 each PO BID 06/20/20 [History] Melatonin/Pyridoxine HCl (B6) [Melatonin Tr 10 mg Tablet] 2 each PO HS 06/20/20 [History] [place]-3 Fatty Acids/Fish Oil [Fish Oil 1,000 mg Capsule] 1,000 mg PO DAILY 06/20/20 [History] Simvastatin 10 mg [Zocor 10MG] 10 mg PO DAILY 06/20/20 [History] Hx Tetanus, Diphtheria Vaccination/Date Given: No Hx Influenza Vaccination/Date Given: Yes Hx Pneumococcal Vaccination/Date Given: Yes Immunizations Up to Date: Yes Travel Risk - International Travel Have you traveled outside of the country in past 3 weeks: No - Coronavirus Screening Are you exhibiting any of the following symptoms?: No Close contact with a COVID-19 positive Pt in past 14-21 Days: No - Vaccine Status Have you recieved a Covid-19 vaccination: Yes 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 - Vaccination Dates Date of 2cond Vaccination (if applicable): 01/26/2021 - Review of Systems Constitutional: No Symptoms, Fatigue Eyes: No Symptoms Ears, Nose, & Throat: No Symptoms Respiratory: No Symptoms, Cough, Dyspnea, Dyspnea on Exertion ([place]) Cardiac: No Symptoms Abdominal/Gastrointestinal: No Symptoms Genitourinary Symptoms: No Symptoms Musculoskeletal: No Symptoms Skin: No Symptoms Neurological: No Symptoms Psychological: No Symptoms Endocrine: No Symptoms Hematologic/Lymphatic: No Symptoms Immunological/Allergic: No Symptoms - Past Medical History Pertinent Past Medical History: Yes Neurological History: No Pertinent History ENT History: No Pertinent History Cardiac History: Congestive Heart Failure, Other Respiratory History: COPD, Sleep Apnea Endocrine Medical History: No Pertinent History Musculoskeletal History: Arthritis GI Medical History: GERD History: No Pertinent History Psycho-Social History: Depression Male Reproductive Disorders: Prostate Problems Other Medical History: weak heart muscles, cardiomyopathy, enlarged spleen. 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 heart cath 2016 - Social History Smoking Status: Never smoker Exposure to second hand smoke: No Drug Use: none Patient Lives Alone: No Significant Family History: no pertinent family hx - Nursing Vital Signs Nursing Vital Signs: Initial Vital Signs Temperature 98.0 F 04/24/21 13:29 Pulse Rate 91 H 04/24/21 13:29 Respiratory Rate 31 H 04/24/21 13:29 Blood Pressure 121/80 04/24/21 13:29 O2 Sat by Pulse Oximetry 95 04/24/21 13:29 Pain Scale Pain Intensity 0 - Physical Exam General Appearance: no apparent distress Eye Exam: PERRL/EOMI, eyes nml inspection Ears, Nose, Throat Exam: hearing grossly normal, normal ENT inspection, normal pharynx Neck Exam: normal inspection, non-tender, supple, No Brudzinski, No Kernig's, No JVD Respiratory Exam: normal breath sounds, lungs clear, airway intact, No chest tenderness, No respiratory distress Cardiovascular/Chest Exam: normal heart sounds, regular rate/rhythm, normal peripheral pulses, edema (Trace B), No murmur Abdominal/Gastrointestinal Exam: soft, normal bowel sounds, No tenderness ([place] bidly obese) Extremity Exam: non-tender, normal range of motion Neurologic Exam: alert, oriented x 3, cooperative, 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 tested, normal mood/affect, nml cerebellar function, nml station & gait, sensation nml Skin Exam: normal color, warm, dry, No rash Lymphatic Exam: No adenopathy SpO2 Interpretation: normal SpO2: 95 O2 Delivery: Room Air - Course Nursing assessment & vital signs reviewed: Yes EKG Interpreted by Me: RATE (NSR/R98/old inferior [place]/Poor R wave pregression/Prolonged QTc/No St-Twave changes) - Radiology Exams Chest X-ray Interpretation: Discussed w/ radiologist (NAD) - CT Exams Chest CT Interpretation: Discussed w/radiologist (CTA chest neg) Ordered Tests: Active Orders 24 hr Category Date Time Status EKG-ER Only STAT Care 04/24/21 13:49 Completed IV Insertion STAT Care 04/24/21 13:49 Completed CHEST 1 VIEW (PORTABLE) Stat Exams 04/24/21 13:50 Completed CHEST WITH CONTRAST [CT] Stat Exams 04/24/21 17:01 Completed CBC W DIFF Stat Lab 04/24/21 13:40 Completed CMP Stat Lab 04/24/21 13:40 Completed D-DIMER QUANTITATIVE Stat Lab 04/24/21 13:54 Completed MAGNESIUM Stat Lab 04/24/21 13:40 Completed NT PRO BNP Stat Lab 04/24/21 13:40 Completed PROTIME WITH INR Stat Lab 04/24/21 13:40 Completed PTT Stat Lab 04/24/21 13:40 Completed TROPONIN Q3H Lab 04/24/21 13:40 Completed TROPONIN Q3H Lab 04/24/21 17:07 Completed Lab/Rad Data: Laboratory Result Diagrams 04/24/21 13:40 04/24/21 13:40 Laboratory Results 04/24/21 04/24/21 04/24/21 Range/Units 17:07 13:54 13:40 WBC (4.0-10.5) K/mm3 RBC (4.1-5.6) M/mm3 Hgb (12.5-18.0) gm/dl Hct (42-50) % MCV (78-100) fl MCH (26-32) pg MCHC (32-36) g/dl RDW (11.5-14.0) % Plt Count (150-450) K/mm3 MPV (7.5-11.0) fl Gran % (36.0-66.0) % Eos # (Auto) (0-0.5) Absolute Lymphs (auto) (1.0-4.6) Absolute Monos (auto) (0.0-1.3) Lymphocytes % (24.0-44.0) % Monocytes % (0.0-12.0) % Eosinophils % (0.00-5.0) % Basophils % (0.0-0.4) % Absolute Granulocytes (1.4-6.9) Basophils # (0-0.4) PT (8.83-12.87) SECONDS INR (0.8-3.0) APTT (24.1-36.1) SECONDS D-Dimer 736 H* (215-500) ng/mL Sodium (137-145) mmol/L Potassium (3.5-5.1) mmol/L Chloride (98-107) mmol/L Carbon Dioxide (22-30) mmol/L Anion Gap (5-15) MEQ/L BUN (9-20) mg/dL Creatinine (0.66-1.25) mg/dL Estimated GFR ML/MIN Glucose (74-106) mg/dL Calcium (8.4-10.2) mg/dL Magnesium (1.6-2.3) mg/dL Total Bilirubin (0.2-1.3) mg/dL AST (17-59) U/L ALT (0-50) U/L Alkaline Phosphatase (38-126) U/L Troponin I < 0.012 < 0.012 (0.000-0.034) ng/mL NT-Pro-B Natriuret Pep (0-900) pg/mL Serum Total Protein (6.3-8.2) g/dL Albumin (3.5-5.0) g/dL 04/24/21 04/24/21 04/24/21 Range/Units 13:40 13:40 13:40 WBC 6.9 (4.0-10.5) K/mm3 RBC 4.10 (4.1-5.6) M/mm3 Hgb 12.8 (12.5-18.0) gm/dl Hct 39.3 L (42-50) % MCV 95.9 (78-100) fl MCH 31.2 (26-32) pg MCHC 32.6 (32-36) g/dl RDW 14.3 H (11.5-14.0) % Plt Count 168 (150-450) K/mm3 MPV 11.4 H (7.5-11.0) fl Gran % 63.0 (36.0-66.0) % Eos # (Auto) 0.10 (0-0.5) Absolute Lymphs (auto) 1.90 (1.0-4.6) Absolute Monos (auto) 0.54 (0.0-1.3) Lymphocytes % 27.5 (24.0-44.0) % Monocytes % 7.8 (0.0-12.0) % Eosinophils % 1.4 (0.00-5.0) % Basophils % 0.3 (0.0-0.4) % Absolute Granulocytes 4.36 (1.4-6.9) Basophils # 0.02 (0-0.4) PT 13.7 H (8.83-12.87) SECONDS INR 1.21 (0.8-3.0) APTT 29.1 (24.1-36.1) SECONDS D-Dimer (215-500) ng/mL Sodium 140 (137-145) mmol/L Potassium 3.6 (3.5-5.1) mmol/L Chloride 106 (98-107) mmol/L Carbon Dioxide 25 (22-30) mmol/L Anion Gap 12.8 (5-15) MEQ/L BUN 21 H (9-20) mg/dL Creatinine 1.21 (0.66-1.25) mg/dL Estimated GFR > 60.0 ML/MIN Glucose 164 H (74-106) mg/dL Calcium 8.7 (8.4-10.2) mg/dL Magnesium 1.4 L (1.6-2.3) mg/dL Total Bilirubin 0.70 (0.2-1.3) mg/dL AST 26 (17-59) U/L ALT 22 (0-50) U/L Alkaline Phosphatase 82 (38-126) U/L Troponin I (0.000-0.034) ng/mL NT-Pro-B Natriuret Pep 151 (0-900) pg/mL Serum Total Protein 6.5 (6.3-8.2) g/dL Albumin 4.1 (3.5-5.0) g/dL - Progress Air Movement: good Progress Note: 04/24/21 22:13 Pt in NAD during entire ER visit w good sats. Dyspnea most likely due to his COPD/cardiomyopathy/discontinuation of O2. Will dc pt w pulmonology f/u. Counseled pt/family regarding: lab results, diagnosis, need for follow-up, rad results - Departure Departure Disposition: Home Clinical Impression: Dyspnea Condition: Stable Critical Care Time: No Referrals: [facility]IM[facility] STEWART [Primary Care Provider] - Instructions: Shortness of Breath (Dyspnea) (DC) Additional Instructions: Continue current meds Follow up with your wireless engineer mart Return to ER for increasing shortness of breath/chest pain/temperature greater than 100.5
[2021-04-24 14:05] LABS: INR 1.21 (0.8-3.0); PROTIME 13.7 SECONDS (8.83-12.87)
[2021-04-24 14:08] LABS: PTT 29.1 SECONDS (24.1-36.1)
[2021-04-24 14:22] LABS: ALBUMIN 4.1 g/dL (3.5-5.0); ALKALINE PHOSPHATASE 82 U/L (38-126); ANION GAP 12.8 MEQ/L (5-15); BLOOD UREA NITROGEN 21 mg/dL (9-20); CHLORIDE 106 mmol/L (98-107); Calcium 8.7 mg/dL (8.4-10.2); Carbon Dioxide 25 mmol/L (22-30); Creatinine 1 1.21 mg/dL (0.66-1.25); EST GLOMERULAR FILTRATION RATE > 60.0 ML/MIN; Glucose 164 mg/dL (74-106); MAGNESIUM 1.4 mg/dL (1.6-2.3); NT PRO BNP 151 pg/mL (0-900); Potassium 3.6 mmol/L (3.5-5.1); SGOT/AST 26 U/L (17-59); SGPT/ALT 22 U/L (0-50); SODIUM 140 mmol/L (137-145); Total Protein 6.5 g/dL (6.3-8.2)
--- NOTE | 2021-04-24 14:24 | XRAY ---
Indication: Chest pain 4 months. Comparison: April 06, 2021. Portable apical lordotic chest remains hyperinflated and clear with incidental focal eventration medial right hemidiaphragm. Heart not enlarged again with tortuous descending aorta. Bony thorax intact again with degenerative changes. Impression: Continued nonacute hyperinflated chest with chronic features.
--- NOTE | 2021-04-24 17:20 | XRAY ---
Indication: Chest pain 4 months. Short of breath. Elevated d-dimer. Multiple contiguous axial images obtained through the chest using 80 cc Isovue 370 contrast and PE protocol. Comparison: None There is good opacification of the pulmonary arteries including lobar and segmental branches. No pulmonary embolus. Heart is enlarged. Aorta is normal in course and caliber without aneurysm/dissection. Tiny right hilar calcified node. No pathologic mediastinal/hilar lymphadenopathy. Lungs demonstrates minimal bilateral dependent atelectasis and tiny right paraspinal/left lower lobe calcified nodules. 5 mm noncalcified nodule along right minor fissure possibly granulomatous. No infiltrate or effusion. Bony thorax intact with mild/moderate degenerative changes throughout the spine and both shoulders. Old right lower rib fractures. Limited upper abdomen demonstrates 15 cm splenomegaly, splenic calcified granulomas, fatty liver, and incompletely visualized small bilateral renal cysts. Impression: 1. Negative pulmonary embolus. 2. Cardiomegaly, calcified/noncalcified granulomas, chronic bony findings, splenomegaly, fatty liver, and incompletely visualized bilateral renal cysts.
[2021-04-24 17:22] VITALS: O2SAT 95
[2021-04-24 17:45] VITALS: BP 107/73; PULSE 72
== END 2021-04-24 17:43 | disposition home or self-care (01) ==
LOC: ED 13:26
DX: R06.00 Dyspnea, unspecified (principal); J44.9 Chronic obstructive pulmonary disease, unspecified; Z79.899 Other long term (current) drug therapy; I50.9 Heart failure, unspecified
CPT/HCPCS: 36000; 36415; 71045; 71260; 80053; 83735; 83880; 84484; 85025; 85379; 85610; 85730; 93005; 99284

== ENCOUNTER 2022-03-18 17:35 | Observation (INO) | payer MEDICAID, MEDICARE ==
[2022-03-18] MEDS ORDERED: Zofran 4 MG/2 ML VIAL IV ONE (18:13)
[2022-03-18] MEDS ORDERED: Sodium Chloride 0.9% 1000 ML 1,000 ML IV STA (18:13)
[2022-03-18 18:32] LABS: Basophil (Absolute #) 0.03 (0-0.4); Eosinophil % 1.7 % (0.00-5.0); Eosinophil (Absolute #) 0.08 (0-0.5); Hematocrit 38.1 % (42-50); Hemoglobin 12.5 gm/dl (12.5-18.0); Lymphocyte (Absolute #) 1.27 (1.0-4.6); Lymphocytes % 26.6 % (24.0-44.0); Mean Cell Volume 98.2 fl (78-100); Mean Corpuscular Hemoglobin 32.2 pg (26-32); Mean Corpuscular Hgb Concent. 32.8 g/dl (32-36); Mean Platelet Volume 10.8 fl (7.5-11.0); Monocyte (Absolute #) 0.39 (0.0-1.3); Monocytes % 8.2 % (0.0-12.0); Neutrophil % 62.9 % (36.0-66.0); Platelet Count 147 K/mm3 (150-450); Red Blood Count 3.88 M/mm3 (4.1-5.6); Red Cell Distribution Width 13.3 % (11.5-14.0); White Blood Count 4.8 K/mm3 (4.0-10.5)
[2022-03-18] MEDS ORDERED: Zofran 4 MG/2 ML VIAL ONE (18:33)
[2022-03-18] MEDS ORDERED: Sodium Chloride 0.9% 1000 ML 1,000 ML ONE (18:34)
[2022-03-18 18:43] LABS: ALBUMIN 3.4 g/dL (3.5-5.0); ALKALINE PHOSPHATASE 80 U/L (38-126); AMYLASE 47 U/L (30-110); ANION GAP 10.7 MEQ/L (5-15); BLOOD UREA NITROGEN 16 mg/dL (9-20); CHLORIDE 109 mmol/L (98-107); Calcium 8.6 mg/dL (8.4-10.2); Carbon Dioxide 24 mmol/L (22-30); Creatinine 1 0.92 mg/dL (0.66-1.25); EST GLOMERULAR FILTRATION RATE > 60.0 ML/MIN; Glucose 152 mg/dL (74-106); LIPASE 32 U/L (23-300); Potassium 4.4 mmol/L (3.5-5.1); SGOT/AST 27 U/L (17-59); SGPT/ALT 23 U/L (0-50); SODIUM 139 mmol/L (137-145); Total Protein 5.9 g/dL (6.3-8.2)
--- NOTE | 2022-03-18 19:02 | ERPHSYRPT ---
- History of Present Illness Historian: patient Exam Limitations: no limitations Patient Subjective Stated Complaint: pt here for vomiting x one today, feeling unsteading at times pain to upper chest area after vomiting today, he is afraid he got food poisioning from mushrooms, Triage Nursing Assessment: pt alert, walked in, face mask in place, resp easy, skin w/d/p, abd soft and nontender Physician History: 71 yo wm w N/V beginning this AM. He believes that he ate a bad mushroom, but his ate the same mushrooms wo problem. Pt denies di arrhea/melena/hematochezia/fever/dysuria/hematuria. States that his abdomen does not hurt. He has had some mild chest pain w vomiting only. Fever/cough are denied. Timing/Duration: today Activities at Onset: rest Quality: other (No pain) Abdominal Pain Onset Location: other (No pain) Modifying Factors: Improves With: vomiting Associated Symptoms: chest pain, loss of appetite, nausea, vomiting, No back, No diaphoresis, No diarrhea, No fever/chills, No fatigue, No headache, No heartburn, No neck pain, No rash, No shortness of breath, No syncope, No testicular pain, No weakness Previous symptoms: no prior history Allergies/Adverse Reactions: Penicillins Allergy (Verified 03/18/22 22:40) Home Medications: Albuterol Sulfate [Proair Hfa] 2 puff IH Q4HPRN PRN 02/20/13 [History] Metoprolol Tartrate 50 mg [Lopressor 50 MG] 50 mg PO DAILY 02/20/13 [History] Omeprazole 40 mg PO DAILY 02/20/13 [History] Furosemide 80 mg PO DAILY 03/13/14 [History] Montelukast Sodium 10 mg [Singulair 10 MG] 10 mg PO HS 03/13/14 [History] Potassium Chloride [Klor-Con 8] 8 meq PO BID 03/13/14 [History] Fluticasone/Salmeterol [Advair 250-50 Diskus] 1 each IH BID 12/09/18 [History] Ascorbic Acid 500 mg [Vitamin C 500 MG] 500 mg PO DAILY 06/20/20 [History] Glucosamine HCl/Chondro Oneil A [Glucosamin+Chondroit Chew Tab] 1 each PO BID 06/20/20 [History] Melatonin/Pyridoxine HCl (B6) [Melatonin Tr 10 mg Tablet] 2 each PO HS 06/20/20 [History] [place]-3 Fatty Acids/Fish Oil [Fish Oil 1,000 mg Capsule] 1,000 mg PO DAILY 06/20/20 [History] Simvastatin 10 mg [Zocor 10MG] 10 mg PO DAILY 06/20/20 [History] Allopurinol 300 mg [Zyloprim 300 mg] 300 mg PO DAILY 03/18/22 [History] Sacubitril/Valsartan [Entresto 49 mg-51 mg Tablet] 1 each PO BID 03/18/22 [His tory] Tamsulosin HCl 0.4 mg [Flomax 0.4 MG] 1 ea HS 03/18/22 [History] Tramadol HCl 50 mg [Ultram 50 mg] 1 ea Q6H PRN PRN 03/18/22 [History] Hx Tetanus, Diphtheria Vaccination/Date Given: No Hx Influenza Vaccination/Date Given: Yes Hx Pneumococcal Vaccination/Date Given: Yes Immunizations Up to Date: Yes Travel Risk - International Travel Have you traveled outside of the country in past 3 weeks: No - Coronavirus Screening Are you exhibiting any of the following symptoms?: No Close contact with a COVID-19 positive Pt in past 14-21 Days: No - Vaccine Status Have you recieved a Covid-19 vaccination: 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 - Vaccination Dates Date of 2cond Vaccination (if applicable): 01/26/2021 - Review of Systems Constitutional: No Symptoms Eyes: No Symptoms Ears, Nose, & Throat: No Symptoms Respiratory: No Symptoms Cardiac: No Symptoms, Chest Pain (w vomiting) Abdominal/Gastrointestinal: No Symptoms, Nausea, Vomiting Genitourinary Symptoms: No Symptoms Musculoskeletal: No Symptoms Skin: No Symptoms Neurological: No Symptoms Psychological: No Symptoms Endocrine: No Symptoms Hematologic/Lymphatic: No Symptoms Immunological/Allergic: No Symptoms - Past Medical History Pertinent Past Medical History: Yes Neurological History: No Pertinent History ENT History: No Pertinent History Cardiac History: Congestive Heart Failure, Other Respiratory History: COPD, Sleep Apnea Endocrine Medical History: No Pertinent History Musculoskeletal History: Arthritis GI Medical History: GERD History: No Pertinent History Psycho-Social History: Depression Male Reproductive Disorders: Prostate Problems Other Medical History: weak heart muscles, cardiomyopathy, enlarged spleen. borderline diabetic- does not take anything - Past Surgical History Past Surgical History: Yes Neuro Surgical History: No Pertinent History Cardiac: Cardiac Catheterization Respiratory: No Pertinent History Gastrointestinal: Cholecystectomy Genitourinary: No Pertinent History Musculoskeletal: No Pertinent History Male Surgical History: Prostate Surgery Other Surgical History: thomas. heart cath 2016 - Social History Smoking Status: Never smoker Exposure to second hand smoke: No Drug Use: none Patient Lives Alone: No Significant Family History: no pertinent family hx - Nursing Vital Signs Nursing Vital Signs: Initial Vital Signs Temperature 97.0 F 03/18/22 17:49 Pulse Rate 64 03/18/22 17:49 Respiratory Rate 18 03/18/22 17:49 Blood Pressure 144/91 03/18/22 17:49 O2 Sat by Pulse Oximetry 96 03/18/22 17:49 Pain Scale Pain Intensity 5 Hypertensive - Physical Exam General Appearance: no apparent distress Eye Exam: PERRL/EOMI, eyes nml inspection Ears, Nose, Throat Exam: normal ENT inspection, TMs normal, pharynx normal, moist mucous membranes Neck Exam: normal inspection, non-tender, supple, full range of motion, No meningismus, No mass, No Brudzinski, No Kernig's, No carotid bruit Respiratory Exam: normal breath sounds, lungs clear, airway intact Cardiovascular Exam: regular rate/rhythm, normal heart sounds, normal peripheral pulses, capillary refill <2 sec, No murmur Gastrointestinal/Abdomen Exam: soft, normal bowel sounds, No tenderness Back Exam: normal inspection, normal range of motion, No CVA tenderness, No vertebral tenderness Extremity Exam: normal inspection, normal range of motion Neurologic Exam: alert, oriented x 3, cooperative, 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 FB extending outside the colon which may be source of inflammation) Ordered Tests: Active Orders 24 hr Category Date Time Status EKG-ER Only STAT Care 03/18/22 18:13 Completed IV Insertion STAT Care 03/18/22 18:13 Completed NPO Diet 03/18/22 21:36 Active ABDOMEN AND PELVIS W/0 CONTRAS [CT] Stat Exams 03/18/22 20:00 Taken AMYLASE Stat Lab 03/18/22 18:28 Completed CBC W DIFF AM.LAB Lab 03/19/22 04:00 Ordered CBC W DIFF Stat Lab 03/18/22 18:28 Completed CMP AM.LAB Lab 03/19/22 04:00 Ordered CMP Stat Lab 03/18/22 18:28 Completed LIPASE Stat Lab 03/18/22 18:28 Completed TROPONIN Q3H Lab 03/18/22 18:28 Completed TROPONIN Q3H Lab 03/18/22 21:13 Completed Medication Summary Generic Name Dose Route Start Last Admin Trade Name Freq PRN Reason Stop Dose Admin Albuterol Sulfate 2 puff 03/19/22 00:26 Albuterol Common Canister Inhaler IH 04/18/22 00:25 Q4H PRN PRN SHORTNESS OF BREATH/WHEEZING Sodium Chloride 1,000 mls @ 100 mls/hr 03/18/22 21:45 03/18/22 22:46 Sodium Chloride 0.9% 1000 Ml IV 04/17/22 21:44 100 mls/hr .Q10H WYATT Administration Levofloxacin/Dextrose 750 mg in 150 mls @ 100 mls/hr 03/19/22 10:00 03/18/22 23:32 Levofloxacin 750mg/150ml D5w IV 04/18/22 09:59 100 mls/hr Q24H10 WYATT Administration Metronidazole 500 mg in 100 mls @ 200 mls/hr 03/18/22 21:45 03/18/22 22:46 Flagyl 500 Mg Ivpb IV 04/17/22 21:44 200 mls/hr Q8H WYATT Administration Ondansetron HCl 4 mg 03/18/22 21:36 Ondansetron Hcl 4 Mg/2 Ml Vial IV 04/17/22 21:35 Q6H PRN PRN NAUSEA/VOMITING Pantoprazole Sodium 40 mg 03/19/22 10:00 Pantoprazole 40 Mg Vial IV 04/18/22 09:59 Q24H10 WYATT Fluticasone/Salmeterol 2 puff 03/19/22 07:00 Fluticasone/Salmeterol 115/21 - 120 Puff Common Canister IH 04/18/22 06:59 BIDRT WYATT Discontinued Medications Generic Name Dose Route Start Last Admin Trade Name Freq PRN Reason Stop Dose Admin Sodium Chloride 1,000 mls @ 999 mls/hr 03/18/22 18:13 03/18/22 19:38 Sodium Chloride 0.9% 1000 Ml IV 03/18/22 19:13 Infused .Q1H1M STA Infusion Sodium Chloride Confirm 03/18/22 18:34 Sodium Chloride 0.9% 1000 Ml Administered 03/18/22 18:35 Dose 1,000 mls @ ud .ROUTE .STK-MED ONE Ondansetron HCl 4 mg 03/18/22 18:13 03/18/22 18:36 Ondansetron Hcl 4 Mg/2 Ml Vial IV 03/18/22 18:14 4 mg STAT ONE Administration Ondansetron HCl Confirm 03/18/22 18:33 Ondansetron Hcl 4 Mg/2 Ml Vial Administered 03/18/22 18:34 Dose 4 mg .ROUTE .STK-MED ONE Lab/Rad Data: Laboratory Result Diagrams 03/18/22 18:28 03/18/22 18:28 Laboratory Results 03/18/22 03/18/22 03/18/22 Range/Units 21:13 19:28 18:28 WBC (4.0-10.5) K/mm3 RBC (4.1-5.6) M/mm3 Hgb (12.5-18.0) gm/dl Hct (42-50) % MCV (78-100) fl MCH (26-32) pg MCHC (32-36) g/dl RDW (11.5-14.0) % Plt Count (150-450) K/mm3 MPV (7.5-11.0) fl Gran % (36.0-66.0) % Eos # (Auto) (0-0.5) Absolute Lymphs (auto) (1.0-4.6) Absolute Monos (auto) (0.0-1.3) Lymphocytes % (24.0-44.0) % Monocytes % (0.0-12.0) % Eosinophils % (0.00-5.0) % Basophils % (0.0-0.4) % Absolute Granulocytes (1.4-6.9) Basophils # (0-0.4) Sodium (137-145) mmol/L Potassium (3.5-5.1) mmol/L Chloride (98-107) mmol/L Carbon Dioxide (22-30) mmol/L Anion Gap (5-15) MEQ/L BUN (9-20) mg/dL Creatinine (0.66-1.25) mg/dL Estimated GFR ML/MIN Glucose (74-106) mg/dL Calcium (8.4-10.2) mg/dL Total Bilirubin (0.2-1.3) mg/dL AST (17-59) U/L ALT (0-50) U/L Alkaline Phosphatase (38-126) U/L Troponin I < 0.012 < 0.012 (0.000-0.034) ng/mL Serum Total Protein (6.3-8.2) g/dL Albumin (3.5-5.0) g/dL Amylase (30-110) U/L Lipase (23-300) U/L Influenza Type A Ag NEGATIVE (NEGATIVE) Influenza Type B Ag NEGATIVE (NEGATIVE) RSV (PCR) NEGATIVE (Negative) SARS-CoV-2 (PCR) NEGATIVE (NEGATIVE) 03/18/22 03/18/22 Range/Units 18:28 18:28 WBC 4.8 (4.0-10.5) K/mm3 RBC 3.88 L (4.1-5.6) M/mm3 Hgb 12.5 (12.5-18.0) gm/dl Hct 38.1 L (42-50) % MCV 98.2 (78-100) fl MCH 32.2 H (26-32) pg MCHC 32.8 (32-36) g/dl RDW 13.3 (11.5-14.0) % Plt Count 147 L (150-450) K/mm3 MPV 10.8 (7.5-11.0) fl Gran % 62.9 (36.0-66.0) % Eos # (Auto) 0.08 (0-0.5) Absolute Lymphs (auto) 1.27 (1.0-4.6) Absolute Monos (auto) 0.39 (0.0-1.3) Lymphocytes % 26.6 (24.0-44.0) % Monocytes % 8.2 (0.0-12.0) % Eosinophils % 1.7 (0.00-5.0) % Basophils % 0.6 (0.0-0.4) % Absolute Granulocytes 3.00 (1.4-6.9) Basophils # 0.03 (0-0.4) Sodium 139 (137-145) mmol/L Potassium 4.4 (3.5-5.1) mmol/L Chloride 109 H (98-107) mmol/L Carbon Dioxide 24 (22-30) mmol/L Anion Gap 10.7 (5-15) MEQ/L BUN 16 (9-20) mg/dL Creatinine 0.92 (0.66-1.25) mg/dL Estimated GFR > 60.0 ML/MIN Glucose 152 H (74-106) mg/dL Calcium 8.6 (8.4-10.2) mg/dL Total Bilirubin 0.90 (0.2-1.3) mg/dL AST 27 (17-59) U/L ALT 23 (0-50) U/L Alkaline Phosphatase 80 (38-126) U/L Troponin I (0.000-0.034) ng/mL Serum Total Protein 5.9 L (6.3-8.2) g/dL Albumin 3.4 L (3.5-5.0) g/dL Amylase 47 (30-110) U/L Lipase 32 (23-300) U/L Influenza Type A Ag (NEGATIVE) Influenza Type B Ag (NEGATIVE) RSV (PCR) (Negative) SARS-CoV-2 (PCR) (NEGATIVE) - Progress Progress: improved Progress Note: 03/18/22 21:31 1L NS bolus/4mg IV Zofran w improvement Spoke w Rad about CT reading, believes that foreign body is possibly a bone that is extending outside the colon causing inflammation Admit per Dr. Wallace 03/19/22 01:43 Orders entered Counseled pt/family regarding: lab results, diagnosis, need for follow-up, rad results - Departure Departure Disposition: Observation Clinical Impression: Diverticulitis Condition: Stable Critical Care Time: No
[2022-03-18 20:05] LABS: INFLUENZA A NEGATIVE (NEGATIVE); INFLUENZA B NEGATIVE (NEGATIVE); RESPIRATORY SYNCTIAL VIRUS NEGATIVE (Negative); SARS-CoV-2 Xpert Express NEGATIVE (NEGATIVE)
[2022-03-18] MEDS ORDERED: Zofran 4 MG/2 ML VIAL IV PRN (21:36)
[2022-03-18] MEDS: Sodium Chloride 0.9% 1000 ML 1,000 ML IV SCH (22:46)
[2022-03-18] MEDS: FLAGYL 500 MG IVPB 500 MG/100 ML BAG IV SCH (22:46)
[2022-03-19] MEDS ORDERED: VENTOLIN COMMON CANISTER IH PRN ×2 (00:26→08:49)
[2022-03-19 04:33] LABS: Absolute Neutrophil Ct (ANC) 3.69 (1.4-6.9); Basophil (Absolute #) 0.02 (0-0.4); Eosinophil % 2.1 % (0.00-5.0); Eosinophil (Absolute #) 0.12 (0-0.5); Hematocrit 38.3 % (42-50); Hemoglobin 12.5 gm/dl (12.5-18.0); Lymphocyte (Absolute #) 1.48 (1.0-4.6); Lymphocytes % 25.8 % (24.0-44.0); Mean Cell Volume 98.7 fl (78-100); Mean Corpuscular Hemoglobin 32.2 pg (26-32); Mean Corpuscular Hgb Concent. 32.6 g/dl (32-36); Mean Platelet Volume 11.3 fl (7.5-11.0); Monocyte (Absolute #) 0.43 (0.0-1.3); Monocytes % 7.5 % (0.0-12.0); Neutrophil % 64.3 % (36.0-66.0); Platelet Count 155 K/mm3 (150-450); Red Blood Count 3.88 M/mm3 (4.1-5.6); Red Cell Distribution Width 13.3 % (11.5-14.0); White Blood Count 5.7 K/mm3 (4.0-10.5)
[2022-03-19 04:48] LABS: ALBUMIN 3.4 g/dL (3.5-5.0); ALKALINE PHOSPHATASE 81 U/L (38-126); BLOOD UREA NITROGEN 12 mg/dL (9-20); CHLORIDE 108 mmol/L (98-107); Calcium 8.4 mg/dL (8.4-10.2); Carbon Dioxide 23 mmol/L (22-30); Creatinine 1 0.96 mg/dL (0.66-1.25); EST GLOMERULAR FILTRATION RATE > 60.0 ML/MIN; Glucose 113 mg/dL (74-106); Potassium 3.9 mmol/L (3.5-5.1); SGOT/AST 29 U/L (17-59); SGPT/ALT 23 U/L (0-50); SODIUM 139 mmol/L (137-145); Total Protein 5.9 g/dL (6.3-8.2)
[2022-03-19] MEDS: FLAGYL 500 MG IVPB 500 MG/100 ML BAG IV SCH ×3 (05:36→21:13)
[2022-03-19 07:11] LABS: Bacteria RARE /HPF (NEGATIVE); Mucus SLIGHT /HPF (NEGATIVE)
[2022-03-19 07:12] LABS: Appearance CLEAR (CLEAR); Bilirubin NEGATIVE (NEGATIVE); Glucose NEGATIVE (NEGATIVE); Ketones NEGATIVE (NEGATIVE); RBC NEGATIVE Ery/ul (0-5); Specific Gravity >=1.030 (1.005-1.025)
[2022-03-19 07:13] LABS: Dipstick done @ ? MAIN LAB; Nitrite NEGATIVE (NEGATIVE); Protein,Urine Dip NEGATIVE (Negative); Urobilinogen 0.2 mg/dL (0-1)
[2022-03-19 07:14] LABS: Urine Cultured Indicated? NO
[2022-03-19] MEDS: Advair Hfa 115/21 Common canister IH SCH ×2 (08:05→18:36)
[2022-03-19] MEDS ORDERED: Ventolin Hfa MDI IH PRN (08:38)
[2022-03-19] MEDS ORDERED: ULTRAM 50 MG PO PRN (08:38)
--- NOTE | 2022-03-19 08:48 | XRAY ---
Indication: Nausea, vomiting, and dizziness. "Sick to stomach." Multiple contiguous axial images obtained through the abdomen and pelvis without contrast. Comparison: July 20, 2020. Lung bases again hyperinflated with mild fibrosis/scarring. No infiltrate or effusion. Heart is not enlarged. Stable small hiatal hernia. Noncontrasted stomach and bowel loops nonobstructed again with normal appendix. There remains mild diffuse scattered colonic diverticulosis without diverticulitis. No free fluid/air. Stable nonobstructing right renal punctate calculus and tiny hyperdense bilateral renal cysts. Again tiny splenic calcified granulomas, 16.4 cm splenomegaly, 24 cm hepatomegaly, and previous cholecystectomy. Remaining liver, pancreas, spleen, adrenal glands, kidneys, ureters, bladder, and aorta are unremarkable for noncontrast exam. Osseous structures intact again with moderate degenerative changes throughout the spine. No ventral or inguinal hernias. Impression: 1. Stable bibasilar fibrosis/scarring, small hiatal hernia, colonic diverticulosis, nonobstructing right renal micro-calculus, tiny bilateral renal cysts, hepatosplenomegaly, chronic bony findings, and old granulomatous disease. 2. Remaining CT abdomen/pelvis without contrast exam is again negative. Comment: Preliminary interpretation made by [facility]. No critical discrepancy.
[2022-03-19] MEDS ORDERED: MEDICATION INTERVENTION MC SCH (09:00)
[2022-03-19] MEDS ORDERED: PROTONIX 40 MG IV IV SCH (10:00)
[2022-03-19] MEDS ORDERED: Zocor 10MG PO SCH (10:00)
[2022-03-19] MEDS ORDERED: ZYLOPRIM 300 MG PO SCH (10:00)
[2022-03-19] MEDS ORDERED: Protonix 40MG Tablet PO SCH (10:00)
[2022-03-19] MEDS ORDERED: FLUTICASONE-SALMETEROL 250-50 IH SCH (10:00)
[2022-03-19] MEDS ORDERED: LASIX 20 MG PO SCH (10:00)
[2022-03-19] MEDS ORDERED: NON-FORMULARY ITEM (Potassium Chloride [Klor-Con 8] 8 MEQ Tablet.Er) PO SCH (10:00)
[2022-03-19] MEDS ORDERED: GLUCOSAMINE HCL PO SCH (10:00)
[2022-03-19] MEDS ORDERED: NON-FORMULARY ITEM (Omeprazole [Omeprazole] 40 MG Capsule.Dr) PO SCH (10:00)
[2022-03-19] MEDS ORDERED: CHONDROITIN PO SCH (10:00)
[2022-03-19] MEDS ORDERED: Lopressor 50 MG PO SCH (10:00)
[2022-03-19] MEDS ORDERED: LEVOFLOXACIN 750MG/150ML D5W 750 MG/150 ML BAG IV SCH ×2 (10:00→22:00)
[2022-03-19] MEDS ORDERED: Lasix 40 MG PO SCH (10:00)
[2022-03-19] MEDS ORDERED: Vitamin C 500 MG PO SCH (10:00)
[2022-03-19] MEDS ORDERED: [UNRECOGNIZED DRUG - OTHER] PO SCH (10:00)
[2022-03-19] MEDS ORDERED: FISH OIL 1,000 MG CAPSULE PO SCH (10:00)
--- NOTE | 2022-03-19 10:33 | HP ---
CHIEF COMPLAINT: Nausea and vomiting. HISTORY OF PRESENT ILLNESS: The patient is a 71-year-old white male patient who reports he had problems with nausea and vomiting. He thought he got a hold of a bad mushroom. He had some nausea develop about six hours after the meal. The patient had presented to the emergency room with the vomiting and nausea. Evaluation in the emergency room found the CT scan finding that was abnormal for possible foreign body possible bone extending through the sigmoid colon although this does not fit the clinical situation at all. The patient has absolutely no tenderness in the left lower quadrant. He has no fever. His white count is normal. PAST MEDICAL/SURGICAL HISTORY: Otherwise significant for heart failure, coronary artery disease, chronic obstructive pulmonary disease, sleep apnea, gastroesophageal reflux disease, depression, prostate problems and borderline diabetes. The patient previously had heart catheterization 2016, cholecystectomy and prostate surgery. HOME MEDICATIONS: Albuterol PRN, metoprolol 50 mg daily, allopurinol 300 mg a day, Advair 250/50 mg 1 b.i.d., Lasix 80 mg daily, glucosamine chondroitin b.i.d., melatonin at night for sleep, montelukast 10 mg daily, omeprazole 40 mg daily, potassium 8 mEq twice a day, Entresto 49-51 mg b.i.d., simvastatin 10 mg daily, tamsulosin 0.4 mg daily, tramadol 50 mg PRN for pain. ALLERGIES: PENICILLINS. PHYSICAL EXAMINATION: The patient's vital signs on admission revealed her temperature to be 97.0F, pulse 64, respiratory rate 18 and blood pressure 144/91. O2 saturation 96%. HEENT: Normocephalic, atraumatic. Pupils equal round reactive to light. Extraocular movements intact. Oropharynx is pink and moist. NECK: Supple without lymphadenopathy, thyromegaly or JVD. CHEST: Clear to auscultation with good air movement bilaterally. HEART: Regular rate and rhythm without murmurs, rubs or gallops heard. ABDOMEN: Soft. No palpable masses were felt. Specifically, he is nontender particularly in the left lower quadrant with palpation. EXTREMITIES: Without significant cyanosis, clubbing or edema. NEUROLOGIC: The patient is alert and oriented x3. No focal deficits noted. LAB DATA AND TESTS: His laboratory studies have included a glucose of 152, BUN 16, creatinine 0.92. His liver enzymes were normal. Amylase and lipase were normal. He had a white count of 4.8, hemoglobin 12.5 and PLT count of 147,000. His CT scan of abdomen and pelvis showed minimal edema around the proximal sigmoid colon with several diverticula suggestive of diverticulitis. It showed a 1.4 cm hyperdense area possible foreign body possibly extending outside of the colon. He had otherwise a 6 mm pulmonary nodule in the left lower lobe, atelectasis, evidence of previous cholecystectomy and several nonobstructive kidney stones and evidence of renal cysts. 12 leak EKG showed a normal sinus rhythm and no significant ST-T wave changes. ASSESSMENT: A patient with some nausea and vomiting which is resolving. He is receiving IV fluids due to the possibility of foreign body and diverticulitis. He was placed on IV antibiotics. We will obtain a surgical consultation this morning. He has been held NPO until his surgical evaluation.
[2022-03-19] MEDS: Sodium Chloride 0.9% 1000 ML 1,000 ML IV SCH ×2 (10:51→21:55)
[2022-03-19] MEDS: ENTRESTO 49 MG-51 MG TABLET PO SCH ×2 (15:28→21:13)
[2022-03-19] MEDS: Klor Con 10 MEQ PO SCH ×2 (15:28→21:13)
[2022-03-19] MEDS ORDERED: Advair Hfa 115/21 Common canister IH SCH (19:00)
[2022-03-19] MEDS ORDERED: PYRIDOXINE HCL PO SCH (22:00)
[2022-03-19] MEDS ORDERED: Flomax 0.4 MG PO SCH (22:00)
[2022-03-19] MEDS ORDERED: [UNRECOGNIZED DRUG - OTHER] PO SCH (22:00)
[2022-03-19] MEDS ORDERED: MELATONIN PO SCH ×2 (22:00)
[2022-03-19] MEDS ORDERED: Singulair 10 MG PO SCH (22:00)
[2022-03-20 04:54] LABS: Absolute Neutrophil Ct (ANC) 3.12 (1.4-6.9); Basophil (Absolute #) 0.01 (0-0.4); Eosinophil % 1.7 % (0.00-5.0); Eosinophil (Absolute #) 0.08 (0-0.5); Hematocrit 37.5 % (42-50); Hemoglobin 12.2 gm/dl (12.5-18.0); Lymphocyte (Absolute #) 1.18 (1.0-4.6); Lymphocytes % 24.4 % (24.0-44.0); Mean Cell Volume 98.2 fl (78-100); Mean Corpuscular Hemoglobin 31.9 pg (26-32); Mean Corpuscular Hgb Concent. 32.5 g/dl (32-36); Mean Platelet Volume 11.1 fl (7.5-11.0); Monocyte (Absolute #) 0.44 (0.0-1.3); Monocytes % 9.1 % (0.0-12.0); Neutrophil % 64.6 % (36.0-66.0); Platelet Count 137 K/mm3 (150-450); Red Blood Count 3.82 M/mm3 (4.1-5.6); Red Cell Distribution Width 13.5 % (11.5-14.0); White Blood Count 4.8 K/mm3 (4.0-10.5)
[2022-03-20 05:24] LABS: ALBUMIN 3.2 g/dL (3.5-5.0); ALKALINE PHOSPHATASE 78 U/L (38-126); ANION GAP 11.7 MEQ/L (5-15); BLOOD UREA NITROGEN 11 mg/dL (9-20); CHLORIDE 105 mmol/L (98-107); Calcium 8.3 mg/dL (8.4-10.2); Carbon Dioxide 27 mmol/L (22-30); Creatinine 1 1.09 mg/dL (0.66-1.25); EST GLOMERULAR FILTRATION RATE > 60.0 ML/MIN; Glucose 127 mg/dL (74-106); Potassium 3.6 mmol/L (3.5-5.1); SGOT/AST 24 U/L (17-59); SGPT/ALT 21 U/L (0-50); SODIUM 140 mmol/L (137-145); Total Protein 5.7 g/dL (6.3-8.2)
[2022-03-20] MEDS: FLAGYL 500 MG IVPB 500 MG/100 ML BAG IV SCH (06:00)
[2022-03-20] MEDS: Sodium Chloride 0.9% 1000 ML 1,000 ML IV SCH (07:39)
[2022-03-20 07:41] VITALS: BP 95/50
[2022-03-20] MEDS: Advair Hfa 115/21 Common canister IH SCH (08:12)
[2022-03-20 08:18] VITALS: PULSE 83; O2SAT 95
--- NOTE | 2022-03-20 08:24 | CONS ---
CONSULT DATE: 03/19/2022 HISTORY: This patient was seen for Dr. Daniel Jones who is weatherization coordinator for our group today. A 71-year-old with some nausea and vomiting. He thought he got some bad mushrooms around six hours after a meal. He came into the emergency room. CT scan had question of foreign body in the colon. However, he did not have any free air or major collections. He is not having any pain right at the moment. Nausea is a little better. I reviewed the CT scan with Dr. Darrel Davis. He is not sure what the radiopaque density is in the colon but it is in the more distal part of the colon. No perforation. He did think the patient did have some diverticulitis. PAST MEDICAL HISTORY: Arthritis, coronary artery disease, obesity, chronic obstructive pulmonary disease, sleep apnea, reflux, depression and some prostate problems and borderline diabetes in the past. PAST SURGICAL HISTORY: Heart cath in the past. Cholecystectomy. Prostate surgery in the past. MEDICATIONS: Albuterol, metoprolol, Advair, Glucosamine Chondroitin, melatonin, montelukast, omeprazole, potassium, Entresto, simvastatin, tamsulosin, tramadol. ALLERGIES: PENICILLIN. FAMILY HISTORY: Negative in regards to this problem. SOCIAL HISTORY: No smoking or alcohol abuse. REVIEW OF SYSTEMS: Fourteen systems reviewed per admission assessment. No chest pain or palpitations other systems negative or noncontributory as above and per preadmission questionnaire. LAB DATA AND TESTS: White count 4.8. PHYSICAL EXAMINATION: He is afebrile. Vital signs stable. GENERAL: No acute distress. HEENT: Sclera nonicteric. NECK: No JVD. CHEST: Equal excursion, nonlabored breathing. CVS: Regular rate and rhythm. ABDOMEN: Soft. No peritoneal signs. He is overweight. EXTREMITIES: No edema. NEURO: Alert, moving extremities grossly symmetrically. PSYCH: Appropriate mood and affect. IMPRESSION: A 71-year-old white male with some nausea and vomiting, question whether he had some enteritis or enterocolitis as far as the causing nausea and vomiting after some food. However, he seems to be doing a little better. However, the radiologist feels he has some mild diverticulitis on CT scan. Given those findings, will start him on clear liquids, continue him on IV antibiotics and if tolerates full liquids by tomorrow morning and improved even further likely could be discharged home on oral antibiotics. Whether this is simple enteritis or enterocolitis or not plus some mild diverticulitis, either way he does not need emergent surgical intervention at this time. I am seeing this patient for Dr. Daniel Jones. When he is discharged as he has not had a colonoscopy in a long time so he could follow up in the office down the road about eight weeks. Sometime in the next few weeks will set up colonoscopy to make sure there are no other issues. Regarding the foreign body, it is likely whatever it is will pass out on its own. If he has increased symptoms will consider endoscopy sooner. The family agreed to the plan. No emergent surgery necessary. Continue IV antibiotics, probably discharge him by tomorrow morning if he is improved. Otherwise, he can follow up with Dr. Daniel Jones who I am seeing the patient for or myself down the road to set up an outpatient colonoscopy.
--- NOTE | 2022-03-20 13:46 | DS ---
DISCHARGE DIAGNOSES: 1) GASTROENTERITIS. 2) POSSIBLE DIVERTICULITIS AND FOREIGN BODY. CONSULTATION: Dr. Phu Berkowitz, Surgery. HOSPITAL COURSE: The patient is a 71-year-old white male patient who presented to the emergency room after feeling nauseated. He thought he had some bad mushrooms. He reports GI flu bug had been going through the family. In the emergency room, the patient was evaluated and on CT scan was found to have what was reported as a 1.4 cm foreign body possible bone causing some diverticular inflammation and possible perforation or extension through the bowel wall. The patient was made NPO. Surgical consultation was obtained. Repeat evaluation by Dr. Darrel Davis, our radiologist, reported now a 3.4 cm possible bone or foreign body with the tip slightly protruding extra-luminal concerning for foreign body. The patient had after evaluation by surgery having no symptoms whatsoever in the left lower quadrant and a normal white count and no fever, he was given clear liquids and advanced to full liquids. The patient is smiling and doing fine this morning sitting up in a chair and felt to be ready for discharge home again. The plan at this point will be to follow the patient in the office in one week. We will follow up with repeat CT scan evaluation for further evaluation and management. The patient is instructed to take some Dulcolax and push fluids otherwise to see if the appearance of the foreign body might resolve over time. It is also warned however if he begins having left lower quadrant abdominal pain, fever, chills or any other problems referable to left lower quadrant that he is to call or come back to the emergency room.
== END 2022-03-20 08:54 | disposition home or self-care (01) ==
LOC: ED 17:35 → MED SURG 22:27
PROVIDERS: ADMIT General Practice; ATTEND Family Medicine
DX: K52.9 Noninfective gastroenteritis and colitis, unspecified (principal); I25.10 Atherosclerotic heart disease of native coronary artery without angina pectoris; J44.9 Chronic obstructive pulmonary disease, unspecified; K21.9 Gastro-esophageal reflux disease without esophagitis; R73.03 Prediabetes; Z79.899 Other long term (current) drug therapy; Z20.828 Contact with and (suspected) exposure to other viral communicable diseases
CPT/HCPCS: 0241U; 36000; 36415; 74176; 80053; 81015; 82150; 83690; 84484; 85025; 93005; 94640; 94660; 94760; 96360; 96374; 99284; G0378; J1956; J2405; A9270-GY

== ENCOUNTER 2022-07-06 13:19 | Emergency (ER) | payer MEDICARE ==
--- NOTE | 2022-07-06 14:03 | ERPHSYRPT ---
- History of Present Illness Source: patient, other () Exam Limitations: no limitations Patient Subjective Stated Complaint: Right shoulder injury Triage Nursing Assessment: Patient ambulated back to ED with cane and transferred self to bed. Patient A+O x.3 Patient's skin pink, warm and dry. Patient complains of right shoulder pain after two falls yesterday. Patient complains of pain 10/10 to right shoulder. Patient states his knees are bad which cause him to fall multiple times. No bruising or visible injuries noted to right shoulder. Physician History: 71 yo morbidly obese WM w limited mobility presents w R shoulder pain after fall yesterday x2 and 3 weeks ago. 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 He needs to lose weight before Orthopod in [place] will replace it. states that he has a small abrasion on his frontal scalp, but although he has a CANO, he states that he did not hit his head. He does have cervical pain but denies T and L-spine pain. Chest pain/abdominal pain/Hip pain/LE pain all denied. He ambul ates w a walker. Occurred: yesterday (Yesterday and 3 wks ago) Reason for Fall: lost balance (Lost balance due to DJD of L knee) Injuries/Pain Location: upper (R shoulder) Loss of Consciousness: no loss of consciousness Quality: aching Severity of Pain-Max: moderate Severity of Pain-Current: moderate Modifying Factors: Improves With: movement Associated Symptoms (Fall): extremity injury, headache, neck pain, trouble walking, No abdominal pain, No back pain, No confusion, No chest pain, No dizziness, No lightheadedness, No muscle spasms, No nausea, No ringing in ears, No seizures, No shortness of breath, No slurred speech, No vomiting, No vision changes Allergies/Adverse Reactions: Penicillins Allergy (Verified 07/06/22 13:24) Home Medications: Albuterol Sulfate [Proair Hfa] 2 puff IH Q4HPRN PRN 02/20/13 [History] Metoprolol Tartrate 50 mg [Lopressor 50 MG] 50 mg PO DAILY 02/20/13 [History] Omeprazole 40 mg PO DAILY 02/20/13 [History] Furosemide 80 mg PO DAILY 03/13/14 [History] Montelukast Sodium 10 mg [Singulair 10 MG] 10 mg PO HS 03/13/14 [History] Potassium Chloride [Klor-Con 8] 8 meq PO BID 03/13/14 [History] Fluticasone/Salmeterol [Advair 250-50 Diskus] 1 each IH BID 12/09/18 [History] Ascorbic Acid 500 mg [Vitamin C 500 MG] 500 mg PO DAILY 06/20/20 [History] Glucosamine HCl/Chondro Oneil A [Glucosamin+Chondroit Chew Tab] 1 each PO BID 06/20/20 [History] Melatonin/Pyridoxine HCl (B6) [Melatonin Tr 10 mg Tablet] 2 each PO HS 06/20/20 [History] [place]-3 Fatty Acids/Fish Oil [Fish Oil 1,000 mg Capsule] 1,000 mg PO DAILY 06/20/20 [History] Simvastatin 10 mg [Zocor 10MG] 10 mg PO DAILY 06/20/20 [History] Allopurinol 300 mg [Zyloprim 300 mg] 300 mg PO DAILY 03/18/22 [History] Sacubitril/Valsartan [Entresto 49 mg-51 mg Tablet] 1 each PO BID 03/18/22 [History] Tamsulosin HCl 0.4 mg [Flomax 0.4 MG] 1 ea HS 03/18/22 [History] Tramadol HCl 50 mg [Ultram 50 mg] 1 ea Q6H PRN PRN 03/18/22 [History] Hx Tetanus, Diphtheria Vaccination/Date Given: No Hx Influenza Vaccination/Date Given: Yes Hx Pneumococcal Vaccination/Date Given: Yes Immunizations Up to Date: Yes Travel Risk - International Travel Have you traveled outside of the country in past 3 weeks: No - Coronavirus Screening Are you exhibiting any of the following symptoms?: No Close contact with a COVID-19 positive Pt in past 14-21 Days: No - Vaccine Status Have you recieved a Covid-19 vaccination: Yes 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 - Vaccination Dates Date of 2cond Vaccination (if applicable): 01/26/2021 - Review of Systems Constitutional: No Symptoms Eyes: No Symptoms Ears, Nose, & Throat: No Symptoms Respiratory: No Symptoms Cardiac: No Symptoms Abdominal/Gastrointestinal: No Symptoms Genitourinary Symptoms: No Symptoms Musculoskeletal: Arthralgias, Neck Pain Skin: No Symptoms Neurological: No Symptoms Psychological: No Symptoms Endocrine: No Symptoms Hematologic/Lymphatic: No Symptoms Immunological/Allergic: No Symptoms - Past Medical History Pertinent Past Medical History: Yes Neurological History: No Pertinent History ENT History: No Pertinent History Cardiac History: Congestive Heart Failure, Other Respiratory History: COPD, Sleep Apnea Endocrine Medical History: No Pertinent History Musculoskeletal History: Arthritis GI Medical History: GERD History: No Pertinent History Psycho-Social History: Depression Male Reproductive Disorders: Prostate Problems Other Medical History: weak heart muscles, cardiomyopathy, enlarged spleen. borderline diabetic- does not take anything - Past Surgical History Past Surgical History: Yes Neuro Surgical History: No Pertinent History Cardiac: Cardiac Catheterization Respiratory: No Pertinent History Gastrointestinal: Cholecystectomy Genitourinary: No Pertinent History Musculoskeletal: No Pertinent History Male Surgical History: Prostate Surgery Other Surgical History: thomas. heart cath 2016 - Social History Smoking Status: Never smoker Exposure to second hand smoke: No Drug Use: none Patient Lives Alone: No Significant Family History: no pertinent family hx - Nursing Vital Signs Nursing Vital Signs: Initial Vital Signs Temperature 97.8 F 07/06/22 13:27 Pulse Rate 64 07/06/22 13:27 Respiratory Rate 18 07/06/22 13:27 Blood Pressure 110/67 07/06/22 13:27 O2 Sat by Pulse Oximetry 94 L 07/06/22 13:27 Pain Scale Pain Intensity 7 WNL - Zack Coma Score Best Eye Response ([place]): (4) open spontaneously Best Verbal Response (Zack): (5) oriented Best Motor Response ([place]): (6) obeys commands Zack Total: 15 - Physical Exam General Appearance: no apparent distress Head Injury: tenderness (Small frontal scalp abrasion) Eye Exam: PERRL/EOMI, eyes nml inspection ENT Exam: airway nml, evidence of ENT injury, No clear fluid (ears), No clear fluid (nose) Neck Exam: supple, trachea midline, tenderness (C-spine mildly TTP) Respiratory/Chest Exam: normal breath sounds, No chest tenderness Cardiovascular Exam: normal heart sounds, regular rate/rhythm, normal peripheral pulses, No murmur Gastrointestinal Exam: soft, normal bowel sounds, No tenderness Back Exam: normal inspection, normal range of motion, No CVA tenderness, No vertebral tenderness Extremity Exam: capillary refill <3 sec, pelvis stable, tenderness (R shoulder TTP anteriorly/Good radial pulse, distal sensation, and capillary return) Peripheral Pulses: carotid (R): 2+, carotid (L): 2+ Neurologic Exam: alert, oriented x 3, cooperative, insulation 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-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 nml as tested, normal mood/affect, sensation nml Skin Exam: normal color, warm, dry SpO2 Interpretation: normal SpO2: 94 O2 Delivery: Room Air - Course Nursing assessment & vital signs reviewed: Yes - Radiology Exams Shoulder X-ray Interpretation: Discussed w/ radiologist (R shoulder neg per Rad) - CT Exams Head CT Interpretation: Discussed w/radiologist (Neg per Rad) Cervical Spine CT Interpretation: Discussed w/radiologist (Neg per Rad) Ordered Tests: Active Orders 24 hr Category Date Time Status CERVICAL SPINE WO CONTRAST [CT] Stat Exams 07/06/22 13:47 Completed HEAD WITHOUT CONTRAST [CT] Stat Exams 07/06/22 13:47 Completed SHOULDER Stat Exams 07/06/22 14:05 Completed Medication Summary Discontinued Medications Generic Name Dose Route Start Last Admin Trade Name Radha PRN Reason Stop Dose Admin Ketorolac Tromethamine 15 mg 07/06/22 14:42 07/06/22 14:44 Ketorolac Tromethamine 30 Mg/Ml Inj IM 07/06/22 14:43 15 mg STAT ONE Administration Ketorolac Tromethamine Confirm 07/06/22 14:43 Ketorolac Tromethamine 30 Mg/Ml Inj Administered 07/06/22 14:44 Dose 30 mg .ROUTE .STK-MED ONE - Progress Progress: improved Progress Note: 07/06/22 14:44 15mg IM Toradol Counseled pt/family regarding: diagnosis, need for follow-up, rad results - Departure Departure Disposition: Home Clinical Impression: Contusion of shoulder, right, Cervical strain, Minor head injury Condition: Stable Critical Care Time: No Referrals: [facility] [Primary Care Provider] - Follow up/PCP as directed Instructions: Minor Head Injury (DC), Cervical Muscle Strain (DC), Shoulder Sprain (DC) Additional Instructions: Continue with Tramadol at home for pain Heat to shoulder/neck as needed Follow up with your family MD or Orthopedic surgeon for continued pain
--- NOTE | 2022-07-06 14:17 | XRAY ---
Indication: Pain following fall. Comparison: None 3 view right shoulder demonstrates osteopenia and mild glenohumeral/acromioclavicular degenerative arthropathy with acromioclavicular punctate heterotopic ossification. No other bony, articular, or soft tissue abnormalities.
--- NOTE | 2022-07-06 14:33 | XRAY ---
Indication: Status post fall x 3. Multiple contiguous axial images obtained through the head without contrast. Comparison: March 26, 2016 Normal appearing brain parenchyma, ventricles, and bony calvarium for patient's age. Visualized paranasal sinuses and mastoid air cells are clear. Impression: Continued normal CT head without contrast exam.
--- NOTE | 2022-07-06 14:35 | XRAY ---
Indication: Status post fall x 3. Multiple contiguous axial images obtained through the cervical spine. Sagittal and coronal reformatted images obtained. Comparison: None Axial images negative for acute fracture, suspicious bony lesions, or spinal canal stenosis. Minimal C4-C7 degenerative endplate spurring. Facets are symmetric. Sagittal and coronal reformatted images demonstrates C4-C7 disc space narrowing. No acute compression fracture, subluxation, or jumped facet. Normal appearing craniocervical chunky. Visualized noncontrasted soft tissues including lung apices are unremarkable. Impression: C4-C7 degenerative changes. Remaining CT cervical spine is negative.
[2022-07-06] MEDS ORDERED: TORAdol 30 mg Injection IM ONE (14:42)
[2022-07-06] MEDS ORDERED: TORAdol 30 mg Injection ONE (14:43)
[2022-07-06 14:46] VITALS: BP 117/74; PULSE 61; O2SAT 94
== END 2022-07-06 14:56 | disposition home or self-care (01) ==
LOC: ED 13:19
DX: S40.011A Contusion of right shoulder, initial encounter (principal); S09.90XA Unspecified injury of head, initial encounter; S16.1XXA Strain of muscle, fascia and tendon at neck level, initial encounter; W19.XXXA Unspecified fall, initial encounter; Z91.81 History of falling; M25.511 Pain in right shoulder; R51.9 Headache, unspecified; J44.9 Chronic obstructive pulmonary disease, unspecified; Z79.899 Other long term (current) drug therapy
CPT/HCPCS: 70450; 72125; 73030; 96372; 99283; J1885

== ENCOUNTER 2023-03-11 16:26 | Emergency (ER) | payer MEDICARE ==
[2023-03-11 16:42] VITALS: O2SAT 95
--- NOTE | 2023-03-11 16:43 | ERPHSYRPT ---
- History of Present Illness Time Seen by Provider: 03/11/23 16:42 Source: patient Exam Limitations: no limitations Patient Subjective Stated Complaint: Left lower leg pain Triage Nursing Assessment: Patient ambulated back to ED with cane and trans ferred to bed per self. Patient A+O X3. Patient's skin pink, warm and dry. Patient states he woke up with pain to left outer leg today. Patient complains of pain 10/10. Patient denies injury or trauma. Negative Eusebia's sign. Physician History: This is a 17-year-old morbidly obese white male patient of Dr. Russell who woke up this morning with left lower, below the knee leg pain. There is been no trauma or injury to the area. Patient is on hydrocodone that he received from Dr. Russell. Patient states that the pain is in the lateral aspect of the calf on the left side. Patient has no history of DVT. He has no chest pain. He is not short of breath. He is not on any anticoagulation therapy. He does take aspirin daily. Patient has a history of hypertension, gastroesophageal reflux disease, gout, hyperlipidemia, COPD and congestive heart failure. Method of Injury: other (No injury) Occurred: this morning Quality: aching Severity of Pain-Max: mild (To moderate) Severity of Pain-Current: mild (To moderate) Lower Extremities Pain: leg: left (Lower leg below the knee lateral aspect) Modifying Factors: Improves With: movement Associated Symptoms: none Allergies/Adverse Reactions: Penicillins Allergy (Verified 03/11/23 16:37) Home Medications: Albuterol Sulfate [Proair Hfa] 2 puff IH Q4HPRN PRN 02/20/13 [History] Metoprolol Tartrate 50 mg [Lopressor 50 MG] 50 mg PO DAILY 02/20/13 [History] Omeprazole 40 mg PO DAILY 02/20/13 [History] Furosemide 80 mg PO DAILY 03/13/14 [History] Montelukast Sodium 10 mg [Singulair 10 MG] 10 mg PO HS 03/13/14 [History] Potassium Chloride [Klor-Con 8] 8 meq PO BID 03/13/14 [History] Fluticasone/Salmeterol [Advair 250-50 Diskus] 1 each IH BID 12/09/18 [History] Ascorbic Acid 500 mg [Vitamin C 500 MG] 500 mg PO DAILY 06/20/20 [History] Glucosamine HCl/Chondro Oneil A [Glucosamin+Chondroit Chew Tab] 1 each PO BID 06/20/20 [History] Melatonin/Pyridoxine HCl (B6) [Melatonin Tr 10 mg Tablet] 2 each PO HS 06/20/20 [History] [place]-3 Fatty Acids/Fish Oil [Fish Oil 1,000 mg Capsule] 1,000 mg PO DAILY 06/20/20 [History] Simvastatin 10 mg [Zocor 10MG] 10 mg PO DAILY 06/20/20 [History] Allopurinol 300 mg [Zyloprim 300 mg] 300 mg PO DAILY 03/18/22 [History] Sacubitril/Valsartan [Entresto 49 mg-51 mg Tablet] 1 each PO BID 03/18/22 [H istory] Tamsulosin HCl 0.4 mg [Flomax 0.4 MG] 1 ea HS 03/18/22 [History] Tramadol HCl 50 mg [Ultram 50 mg] 1 ea Q6H PRN PRN 03/18/22 [History] Hx Tetanus, Diphtheria Vaccination/Date Given: No Hx Influenza Vaccination/Date Given: Yes Hx Pneumococcal Vaccination/Date Given: Yes Immunizations Up to Date: Yes Travel Risk - International Travel Have you traveled outside of the country in past 3 weeks: No - Coronavirus Screening Are you exhibiting any of the following symptoms?: No Close contact with a COVID-19 positive Pt in past 14-21 Days: No - Vaccine Status Have you recieved a Covid-19 vaccination: Yes Enterprise 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: 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 - Vaccination Dates Date of 2cond Vaccination (if applicable): 01/26/2021 - Review of Systems Constitutional: No Symptoms Eyes: No Symptoms Ears, Nose, & Throat: No Symptoms Respiratory: No Symptoms Cardiac: No Symptoms Abdominal/Gastrointestinal: No Symptoms Genitourinary Symptoms: No Symptoms Musculoskeletal: Other (Left lower leg pain below the knee lateral aspect of the left calf) Skin: No Symptoms Neurological: No Symptoms Psychological: No Symptoms Endocrine: No Symptoms Hematologic/Lymphatic: No Symptoms Immunological/Allergic: No Symptoms All Other Systems: Reviewed and Negative - Past Medical History Pertinent Past Medical History: Yes Neurological History: No Pertinent History ENT History: No Pertinent History Cardiac History: Congestive Heart Failure, Other Respiratory History: COPD, Sleep Apnea Endocrine Medical History: No Pertinent History Musculoskeletal History: Osteoarthritis GI Medical History: GERD History: No Pertinent History Psycho-Social History: Depression Male Reproductive Disorders: Prostate Problems Other Medical History: OTHER PMHX: BPH, CARDIOMYOPATHY, DEPRESSION, ENLARGED SPLEEN, GERD. SX HX: CARDIAC CATH (NO STENTS), CHOLECYSTECTOMY - Past Surgical History Past Surgical History: Yes Neuro Surgical History: No Pertinent History Cardiac: Cardiac Catheterization Respiratory: No Pertinent History Gastrointestinal: Cholecystectomy Genitourinary: No Pertinent History Musculoskeletal: No Pertinent History Male Surgical History: Prostate Surgery Other Surgical History: thomas. heart cath 2017 - Social History Smoking Status: Never smoker Exposure to second hand smoke: No Drug Use: none Patient Lives Alone: No Significant Family History: no pertinent family hx - Nursing Vital Signs Nursing Vital Signs: Initial Vital Signs Temperature 97.6 F 03/11/23 16:37 Pulse Rate 85 03/11/23 16:37 Respiratory Rate 20 03/11/23 16:37 Blood Pressure 112/68 03/11/23 16:37 O2 Sat by Pulse Oximetry 95 03/11/23 16:37 Pain Scale Pain Intensity 10 - Physical Exam General Appearance: no apparent distress, alert, anxiety, obese Eyes, Ears, Nose, Throat Exam: normal ENT inspection, moist mucous membranes Neck Exam: normal inspection, non-tender, supple, full range of motion Cardiovascular/Respiratory Exam: chest non-tender, no respiratory distress Gastrointestinal/Abdominal Exam: non-tender Back Exam: normal inspection, normal range of motion, No CVA tenderness, No vertebral tenderness Hips Exam: bilateral: non-tender, normal inspection, normal range of motion, no evidence of injury Legs Exam: right leg: non-tender, left leg: soft tissue tenderness (Lateral aspect left calf below the knee), bilateral leg: normal inspection, normal range of motion, no evidence of injury, other (No cellulitis) Knees Exam: bilateral knee: non-tender, normal inspection, normal range of motion, no evidence of injury Ankle Exam: bilateral ankle: non-tender, normal inspection, normal range of motion, no evidence of injury Foot Exam: bilateral foot: non-tender, normal inspection, normal range of motion, no evidence of injury Neuro/Tendon Exam: normal sensation, normal motor functions, normal tendon functions Mental Status Exam: alert, oriented x 3, cooperative Skin Exam: normal color, warm, dry SpO2 Interpretation: normal SpO2: 95 O2 Delivery: Room Air - Course Nursing assessment & vital signs reviewed: Yes Ordered Tests: Active Orders 24 hr Category Date Time Status VENOUS UNILAT/LIMITED EXTREMIT [US] Stat Exams 03/11/23 16:44 Completed - Progress Progress: unchanged Progress Note: 03/11/23 17:16 Venous Doppler left leg negative for DVT. I reviewed the impression of the rad iology tech and radiologist interpretation. This patient's medical issue is 1 of low complexity. The level of complexity and the work-up performed is based on the past medical history, review of the patient's medication list, review of the medication drug allergies, history of present illness and physical findings on examination. The only test I feel necessary is a venous Doppler. The above-stated results are noted. The patient has hydrocodone at home which I will have him use as prescribed. I will add a muscle relaxant of Norflex. I will provide an intramuscular dose now in the emergency department and send a prescription for Norflex oral medication at home to his pharmacy electronically Counseled pt/family regarding: diagnosis, need for follow-up, rad results Medical Desision Making - Independent Historian Additional History obtained from: Spouse - Discussion of managment Agreed on:: Treatment plan, need for follow-up - Diagnostic Testing Diagnostic test were ordered, analyzed, and reviewed by me: Yes Radiological Interpretation: Reviewed by me, Teleradiologist Report - Risk of complications The pt has a mod risk of morbidity or mortality based on: Need for prescription drug management - Departure Departure Disposition: Home Clinical Impression: Pain on movement of skeletal muscle Condition: Stable Critical Care Time: No Referrals: MAXIMUS RUSSELL [Primary Care Provider] - Follow up/PCP as directed Additional Instructions: Take your hydrocodone medication as prescribed. Take your orphenadrine muscle relaxant as prescribed. Call your primary care provider's office tomorrow morning to make arrangements for follow-up appointment the next 3 to 5 days for further management. Prescriptions: Orphenadrine Citrate 100 mg [Norflex 100 MG Tablet] 100 mg PO BID #10 tab
--- NOTE | 2023-03-11 17:09 | XRAY ---
Indication: Pain. Two-dimensional sonogram and color Doppler imaging of the major venous vessels of the left leg performed. Comparison: None No thrombus seen in the examined deep venous vessels of the left leg including greater saphenous vein. Veins demonstrate normal compressibility. Venous waveforms are normal with and without augmentation. Impression: Left leg negative for DVT.
[2023-03-11] MEDS ORDERED: Norflex 60 MG/2 ML IM ONE (17:12)
[2023-03-11] MEDS ORDERED: Norflex 60 MG/2 ML ONE (17:14)
[2023-03-11 17:31] VITALS: BP 119/68; PULSE 76
== END 2023-03-11 17:31 | disposition home or self-care (01) ==
LOC: ED 16:26
DX: M79.18 Myalgia, other site (principal); M79.662 Pain in left lower leg; I11.0 Hypertensive heart disease with heart failure; I50.9 Heart failure, unspecified; E78.5 Hyperlipidemia, unspecified; Z79.891 Long term (current) use of opiate analgesic; Z79.899 Other long term (current) drug therapy
CPT/HCPCS: 93971; 96372; 99283; J2360

== ENCOUNTER 2024-04-21 20:39 | Emergency (ER) | payer MEDICARE ==
[2024-04-21 20:47] VITALS: TEMP 98.5
--- NOTE | 2024-04-21 21:26 | ERPHSYRPT ---
- History of Present Illness Time Seen by Provider: 04/21/24 21:00 Source: patient Exam Limitations: no limitations, clinical condition Patient Subjective Stated Complaint: chest pain since yesterday off and on, but worse today Triage Nursing Assessment: Pt ambulated into ER without diff, at bedside. Pt c/o midsternal chest pain with no radiation since yesterday around 4pm, but got worse today. Pt c/o non prod cough but denies any sob. Lungs clear, heart tones reg. No edema noted. Abd lg, round with active bs x4 quad, nontender. Timing/Duration: yesterday Severity: mild Modifying Factors: Improves With: nothing Associated Symptoms: denies symptoms Allergies/Adverse Reactions: Penicillins Allergy (Verified 04/21/24 20:58) Home Medications: Metoprolol Tartrate 50 mg [Lopressor 50 MG] 75 mg PO DAILY 02/20/13 [History] Omeprazole 40 mg PO DAILY 02/20/13 [History] Furosemide 80 mg PO DAILY 03/13/14 [History] Montelukast Sodium 10 mg [Singulair 10 MG] 10 mg PO HS 03/13/14 [History] Potassium Chloride [Klor-Con 8] 8 meq PO DAILY 03/13/14 [History] Glucosamine HCl/Chondro Oneil A [Glucosamin+Chondroit Chew Tab] 1 each PO BID 06/20/20 [History] Melatonin/Pyridoxine HCl (B6) [Melatonin Tr 10 mg Tablet] 2 each PO HS 06/20/20 [History] [place]-3 Fatty Acids/Fish Oil [Fish Oil 1,000 mg Capsule] 1,000 mg PO DAILY 06/20/20 [History] Simvastatin 10 mg [Zocor 10MG] 10 mg PO DAILY 06/20/20 [History] Allopurinol 300 mg [Zyloprim 300 mg] 300 mg PO DAILY 03/18/22 [History] Sacubitril/Valsartan [Entresto 49 mg-51 mg Tablet] 1 each PO BID 03/18/22 [History] Tamsulosin HCl 0.4 mg [Flomax 0.4 MG] 1 ea PO HS 03/18/22 [History] Acetaminophen [Arthritis Pain Reliever] 1 tab PO BID 04/21/24 [History] Aspirin EC 81 mg [Ecotrin 81 mg] 1 tab PO DAILY 04/21/24 [History] Dapagliflozin Propanediol [Farxiga] 10 mg PO DAILY 04/21/24 [History] Donepezil HCl 10 mg [Aricept 10 MG] 1 tab PO DAILY 04/21/24 [History] Fexofenadine HCl 180 mg PO DAILY 04/21/24 [History] Memantine HCl 5 mg PO DAILY 04/21/24 [History] Multivitamin 1 tab PO DAILY 04/21/24 [History] terbinafine HCL [Terbinafine HCl] 1 tab PO DAILY 04/21/24 [History] Hx Tetanus, Diphtheria Vaccination/Date Given: Yes Hx Influenza Vaccination/Date Given: Yes Hx Pneumococcal Vaccination/Date Given: Yes Immunizations Up to Date: Yes Travel Risk - International Travel Have you traveled outside of the country in past 3 weeks: No - Emerging Infectious Disease Are you exhibiting symptoms associated with any current EIDs: Yes Symptoms: Cough: New Onset - Review of Systems Eyes: No Symptoms Ears, Nose, & Throat: No Symptoms Respiratory: No Symptoms Cardiac: Chest Pain Abdominal/Gastrointestinal: No Symptoms Genitourinary Symptoms: No Symptoms Musculoskeletal: No Symptoms Skin: No Symptoms Neurological: No Symptoms Psychological: No Symptoms Endocrine: No Symptoms - Past Medical History Pertinent Past Medical History: Yes Neurological History: Dementia ENT History: No Pertinent History Cardiac History: Congestive Heart Failure, Other Respiratory History: COPD, Sleep Apnea Endocrine Medical History: No Pertinent History Musculoskeletal History: Osteoarthritis GI Medical History: GERD, Gallbladder Disease History: No Pertinent History Psycho-Social History: Depression Male Reproductive Disorders: Prostate Problems Other Medical History: OTHER PMHX: BPH, CARDIOMYOPATHY, DEPRESSION, ENLARGED SPLEEN, GERD. SX HX: CARDIAC CATH (NO STENTS), CHOLECYSTECTOMY - Past Surgical History Past Surgical History: Yes Neuro Surgical History: No Pertinent History Cardiac: Cardiac Catheterization Respiratory: No Pertinent History Gastrointestinal: Cholecystectomy Genitourinary: No Pertinent History Musculoskeletal: No Pertinent History Male Surgical History: Prostate Surgery Other Surgical History: thomas. heart cath 2016 Significant Family History: no pertinent family hx - Social History Smoking Status: Never smoker Exposure to second hand smoke: No Drug Use: none Patient Lives Alone: No - Social Determinants of Health Will the patient participate in the screening: Yes Do you worry about a steady place to live?: No Do you have any problems with any of the following?: No known problems In the past 12 months,have you had to go without utilities?: No Transportation Issues: No Has anyone in your support network made you feel unsafe?: No Have you or anyone in your house had to go without enough: No - Nursing Vital Signs Nursing Vital Signs: Initial Vital Signs Pulse Rate 71 04/21/24 20:40 Respiratory Rate 21 04/21/24 20:40 Blood Pressure 131/71 04/21/24 20:40 O2 Sat by Pulse Oximetry 93 L 04/21/24 20:40 Pain Scale Pain Intensity 3 - Physical Exam General Appearance: no apparent distress Eye Exam: PERRL/EOMI Ears, Nose, Throat Exam: normal ENT inspection Neck Exam: normal inspection Respiratory Exam: normal breath sounds Cardiovascular Exam: regular rate/rhythm SpO2: 95 - Course EKG Interpreted by Me: RATE, Sinus Rhythm, Non-specific ST Changes Ordered Tests: Active Orders 24 hr Category Date Time Status CHEST 1 VIEW (PORTABLE) Stat Exams 04/21/24 21:19 Taken CHEST WITH CONTRAST [CT] Stat Exams 04/21/24 22:26 Completed CBC W DIFF Stat Lab 04/21/24 21:16 Completed CK-Creatinine Phosphokinase Stat Lab 04/21/24 21:16 Completed CMP Stat Lab 04/21/24 21:16 Completed D-DIMER QUANTITATIVE Stat Lab 04/21/24 21:16 Completed NT PRO BNPII Stat Lab 04/21/24 21:16 Completed TROPONIN Q4H Lab 04/21/24 21:16 Completed TROPONIN Q4H Lab 04/22/24 00:20 Completed TROPONIN Q4H Lab 04/22/24 05:30 Ordered Medication Summary Discontinued Medications Generic Name Dose Route Start Last Admin Trade Name Freq PRN Reason Stop Dose Admin Nitroglycerin Confirm 04/21/24 21:41 Nitroglycerin 0.4 Mg (Ed) 0.4 Mg Tab.Subl Administered 04/21/24 21:42 Dose 0.4 mg SL .STK-MED ONE Nitroglycerin 0.4 mg 04/21/24 21:41 04/21/24 21:45 Nitroglycerin 0.4 Mg (Ed) 0.4 Mg Tab.Subl SL 04/21/24 21:42 0.4 mg STAT ONE Administration Nitroglycerin 1 gm 04/21/24 22:09 04/21/24 22:13 Nitroglycerin 1 Gm Packet TOP 04/21/24 22:10 1 gm STAT ONE Administration Nitroglycerin Confirm 04/21/24 22:10 Nitroglycerin 1 Gm Packet Administered 04/21/24 22:11 Dose 1 gm .ROUTE .STK-MED ONE Lab/Rad Data: Laboratory Result Diagrams 04/21/24 21:16 04/21/24 21:16 Laboratory Results 04/22/24 04/21/24 04/21/24 Range/Units 00:20 21:16 21:16 WBC (4.0-10.5) x10^3/uL RBC (4.1-5.6) x10^6/uL Hgb (12.5-18.0) g/dL Hct (42-50) % MCV (78-100) fL MCH (26-32) pg MCHC (32-36) g/dL RDW (11.5-14.0) % Plt Count (150-450) x10^3/uL MPV (7.5-11.0) fL Gran % (36.0-66.0) % Immature Gran % (Auto) (0.00-0.4) % Nucleat RBC Rel Count (0.00-0.1) % Eos # (Auto) (0-0.5) x10^3/uL Immature Gran # (Auto) (0.00-0.03) x10^3u/L Absolute Lymphs (auto) (1.0-4.6) x10^3/uL Absolute Monos (auto) (0.0-1.3) x10^3/uL Absolute Nucleated RBC (0.00-0.01) x10^3u/L Lymphocytes % (24.0-44.0) % Monocytes % (0.0-12.0) % Eosinophils % (0.00-5.0) % Basophils % (0.0-0.4) % Absolute Granulocytes (1.4-6.9) x10^3/uL Basophils # (0-0.4) x10^3/uL D-Dimer 1.08 H* (0.0-0.50) mg/L Sodium (135-145) mmol/L Potassium (3.5-5.1) mmol/L Chloride (98-107) mmol/L Carbon Dioxide (22-30) mmol/L Anion Gap (5-15) MEQ/L BUN (9-20) mg/dL Creatinine (0.66-1.25) mg/dL Estimated GFR ML/MIN Glucose (74-106) mg/dL Calcium (8.4-10.2) mg/dL Total Bilirubin (0.2-1.3) mg/dL AST (17-59) U/L ALT (0-50) U/L Alkaline Phosphatase (38-126) U/L Creatine Kinase (55-170) U/L Troponin I < 0.012 < 0.012 (0.000-0.033) ng/mL NT-Pro-B Natriuret Pep (<300) pg/mL Serum Total Protein (6.3-8.2) g/dL Albumin (3.5-5.0) g/dL 04/21/24 04/21/24 Range/Units 21:16 21:16 WBC 6.3 (4.0-10.5) x10^3/uL RBC 4.24 (4.1-5.6) x10^6/uL Hgb 13.5 (12.5-18.0) g/dL Hct 40.6 L (42-50) % MCV 95.8 (78-100) fL MCH 31.8 (26-32) pg MCHC 33.3 (32-36) g/dL RDW 13.2 (11.5-14.0) % Plt Count 142 L (150-450) x10^3/uL MPV 11.0 (7.5-11.0) fL Gran % 59.0 (36.0-66.0) % Immature Gran % (Auto) 0.3 (0.00-0.4) % Nucleat RBC Rel Count 0.0 (0.00-0.1) % Eos # (Auto) 0.16 (0-0.5) x10^3/uL Immature Gran # (Auto) 0.02 (0.00-0.03) x10^3u/L Absolute Lymphs (auto) 1.82 (1.0-4.6) x10^3/uL Absolute Monos (auto) 0.56 (0.0-1.3) x10^3/uL Absolute Nucleated RBC 0.00 (0.00-0.01) x10^3u/L Lymphocytes % 29.0 (24.0-44.0) % Monocytes % 8.9 (0.0-12.0) % Eosinophils % 2.5 (0.00-5.0) % Basophils % 0.3 (0.0-0.4) % Absolute Granulocytes 3.70 (1.4-6.9) x10^3/uL Basophils # 0.02 (0-0.4) x10^3/uL D-Dimer (0.0-0.50) mg/L Sodium 140 (135-145) mmol/L Potassium 4.2 (3.5-5.1) mmol/L Chloride 111 H (98-107) mmol/L Carbon Dioxide 25 (22-30) mmol/L Anion Gap 8.8 (5-15) MEQ/L BUN 14 (9-20) mg/dL Creatinine 0.94 (0.66-1.25) mg/dL Estimated GFR 85.6 ML/MIN Glucose 132 H (74-106) mg/dL Calcium 8.7 (8.4-10.2) mg/dL Total Bilirubin 0.60 (0.2-1.3) mg/dL AST 28 (17-59) U/L ALT 28 (0-50) U/L Alkaline Phosphatase 82 (38-126) U/L Creatine Kinase 81 (55-170) U/L Troponin I (0.000-0.033) ng/mL NT-Pro-B Natriuret Pep 509 (<300) pg/mL Serum Total Protein 6.3 (6.3-8.2) g/dL Albumin 3.7 (3.5-5.0) g/dL - Progress Progress Note: Patient was seen and evaluated for right-sided chest pain that has been getting worse for the past few days denies any fever chills or dyspnea with exertion chest pain protocols labs were obtained initial and repeat troponin within normal limits he was updated with the CT of the chest that revealed some rib fractures he did inform me that he has recently fallen I suspect that some of his discomfort is secondary to the above symptoms in the fall and the rib fractures denies any head neck or abdominal pain he does not want to be admitted at this time he wants to go home he was informed of the need to follow-up with his primary care provider and return to the ER should he get worse 04/22/24 01:24 - Departure Clinical Impression: Chest pain, Ribs, multiple fractures Condition: Good Critical Care Time: No Referrals: MAXIMUS STEWART [Primary Care Provider] - Follow up/PCP as directed Instructions: Angina (DC), Chest Pain (DC)
[2024-04-21 21:27] LABS: BASOPHIL % 0.3 % (0.0-0.4); Basophil (Absolute #) 0.02 x10^3/uL (0-0.4); Eosinophil % 2.5 % (0.00-5.0); Eosinophil (Absolute #) 0.16 x10^3/uL (0-0.5); Hematocrit 40.6 % (42-50); Hemoglobin 13.5 g/dL (12.5-18.0); IMMATURE GRAN # 0.02 x10^3u/L (0.00-0.03); IMMATURE GRAN % 0.3 % (0.00-0.4); Lymphocyte (Absolute #) 1.82 x10^3/uL (1.0-4.6); Mean Cell Volume 95.8 fL (78-100); Mean Corpuscular Hemoglobin 31.8 pg (26-32); Mean Corpuscular Hgb Concent. 33.3 g/dL (32-36); Monocyte (Absolute #) 0.56 x10^3/uL (0.0-1.3); Monocytes % 8.9 % (0.0-12.0); Platelet Count 142 x10^3/uL (150-450); Red Blood Count 4.24 x10^6/uL (4.1-5.6); Red Cell Distribution Width 13.2 % (11.5-14.0); White Blood Count 6.3 x10^3/uL (4.0-10.5)
[2024-04-21] MEDS ORDERED: Nitrostat 0.4 MG (ED) SL ONE (21:41)
[2024-04-21] MEDS: Nitrostat 0.4 MG (ED) SL ONE (21:45)
[2024-04-21 21:49] LABS: ALBUMIN 3.7 g/dL (3.5-5.0); ANION GAP 8.8 MEQ/L (5-15); BILIRUBIN,TOTAL 0.6 mg/dL (0.2-1.3); Calcium 8.7 mg/dL (8.4-10.2); Creatinine 1 0.94 mg/dL (0.66-1.25); EST GLOMERULAR FILTRATION RATE 85.6 ML/MIN; Potassium 4.2 mmol/L (3.5-5.1); Total Protein 6.3 g/dL (6.3-8.2)
[2024-04-21] MEDS ORDERED: NITRO-BID 2% UD PACKETS ONE (22:10)
[2024-04-21] MEDS: NITRO-BID 2% UD PACKETS TOP ONE (22:13)
--- NOTE | 2024-04-22 00:17 | XRAY ---
CLINICAL HISTORY: chest pain COMPARISON: CR study dated 03/22/2023. TECHNIQUE: Contiguous axial CT images of the chest were acquired with 100 ml Isovue-370 intravenous contrast. Coronal and sagittal reconstructions were obtained. One of the following dose reduction techniques were utilized for this exam: Automated exposure control, adjustment of the mA and/or kV according to patient size, use of iterative reconstruction? FINDINGS: Minimal bilateral pleural effusion, more evident on the left side. Bilateral pulmonary subpleural interstitial and interlobular septae thickening with patchy ground glass veiling and areas of honeycombing. Bilateral pulmonary atelectatic plates. No obvious pulmonary masses, consolidations or cavitary changes. Cardiomegaly of left atrioventricular preponderance. Patent pulmonary artery, its main branches and segmental branches. No obvious thromboembolism. Patent thoracic aorta with ectatic descending aorta. No pericardial effusion. No pathologically enlarged lymph nodes. No definite mass lesion in the chest wall. Partially united fracture of the anterior aspect of the right 5th rib. Malunited fracture of the anterior aspect of the left 7th and 8th ribs. Thoracic spondylosis. IMPRESSION: 1. Minimal bilateral pleural effusion, more evident on the left side. 2. Bilateral pulmonary subpleural interlobular septae thickening with patchy ground glass veiling and areas of honeycombing, possibly interstitial lung disease. 3. Cardiomegaly with ectatic descending aorta. 4. No obvious thromboembolism of the pulmonary artery or its main branches. 5. Partially united fracture of the anterior aspect of the right 5th rib. 6. Malunited fracture of the anterior aspect of the left 7th and [address]th ribs. [facility] was called at [phone] at 11:10 PM [employer]ER, 04/21/2024 and results were verbally communicated to Dr Gutierrez. Electronically Signed by: Caitie Mckeon MD. (04/22/2024 00:13:19 EDT)
[2024-04-22 01:30] VITALS: O2SAT 95
[2024-04-22 01:41] VITALS: BP 123/81; PULSE 68; RESP 23
--- NOTE | 2024-04-22 08:43 | XRAY ---
Indication: Chest pain. Comparison: April 09, 2023 Portable chest demonstrates new mild right base infiltrate/atelectasis. Remaining heart and left lung unremarkable. Bony thorax intact again with osteopenia and degenerative changes.
== END 2024-04-22 01:48 | disposition home or self-care (01) ==
LOC: ED 20:39
DX: S22.41XA Multiple fractures of ribs, right side, initial encounter for closed fracture (principal); W19.XXXA Unspecified fall, initial encounter; R07.9 Chest pain, unspecified; I50.9 Heart failure, unspecified; Z79.84 Long term (current) use of oral hypoglycemic drugs; Z79.899 Other long term (current) drug therapy
CPT/HCPCS: 36000; 36415; 71045; 71260; 80053; 82550; 83880; 84484; 85025; 85379; 93005; 99284; A9270-GY

== ENCOUNTER 2024-11-11 12:34 | Emergency (ER) | payer MEDICARE ==
[2024-11-11 12:54] VITALS: PULSE 83; TEMP 97.7; O2SAT 97
--- NOTE | 2024-11-11 13:01 | ERPHSYRPT ---
- History of Present Illness Time Seen by Provider: 11/11/24 12:59 Source: patient, family Exam Limitations: no limitations Patient Subjective Stated Complaint: pt fell 3 days ago when his walker collapsed on him and his left knee and lower sternum landed on the bar of the walker causing pain and swelling in the left knee, bruising to the right hip and lower lateral leg Triage Nursing Assessment: Pt brought to the ER by his , vitals wnl, rates pain as 10/10, pulses normal, skin n/w/d, swelling to the left knee, bruising to the right lower ext, bruising to the right hip, no bruising noted to the chest, no difficulty breathing, denies cardiac pain, doesn't appear to be in any distress Physician History: pt fell 3 days ago when his walker collapsed on him and his left knee and lower sternum landed on the bar of the walker causing pain and swelling in the left knee, bruising to the right hip and lower lateral leg swelling to the left knee, bruising to the right lower ext, bruising to the right hip, no bruising noted to the chest, no difficulty breathing, denies cardiac pain, doesn't appear to be in any distress Occurred: days ago (Three days) Reason for Fall: tripped Injuries/Pain Location: chest, lower extremity Loss of Consciousness: no loss of consciousness Severity of Pain-Max: mild Severity of Pain-Current: mild Associated Symptoms (Fall): denies symptoms Allergies/Adverse Reactions: Penicillins Allergy (Verified 11/11/24 12:54) Home Medications: Metoprolol Tartrate 50 mg [Lopressor 50 MG] 75 mg PO DAILY 02/20/13 [History] Omeprazole 40 mg PO DAILY 02/20/13 [History] Furosemide 80 mg PO DAILY 03/13/14 [History] Montelukast Sodium 10 mg [Singulair 10 MG] 10 mg PO HS 03/13/14 [History] Potassium Chloride [Klor-Con 8] 8 meq PO DAILY 03/13/14 [History] Glucosamine HCl/Chondro Oneil A [Glucosamin+Chondroit Chew Tab] 1 each PO BID 06/20/20 [History] Melatonin/Pyridoxine HCl (B6) [Melatonin Tr 10 mg Tablet] 2 each PO HS 06/20/20 [History] Sumner-3 Fatty Acids/Fish Oil [Fish Oil 1,000 mg Capsule] 1,000 mg PO DAILY 06/20/20 [History] Simvastatin 10 mg [Zocor 10MG] 10 mg PO DAILY 06/20/20 [History] Allopurinol 300 mg [Zyloprim 300 mg] 300 mg PO DAILY 03/18/22 [History] Sacubitril/Valsartan [Entresto 49 mg-51 mg Tablet] 1 each PO BID 03/18/22 [History] Tamsulosin HCl 0.4 mg [Flomax 0.4 MG] 1 ea PO HS 03/18/22 [History] Acetaminophen [Arthritis Pain Reliever] 1 tab PO BID 04/21/24 [History] Aspirin EC 81 mg [Ecotrin 81 mg] 1 tab PO DAILY 04/21/24 [History] Dapagliflozin Propanediol [Farxiga] 10 mg PO DAILY 04/21/24 [History] Donepezil HCl 10 mg [Aricept 10 MG] 1 tab PO DAILY 04/21/24 [History] Fexofenadine HCl 180 mg PO DAILY 04/21/24 [History] Memantine HCl 5 mg PO DAILY 04/21/24 [History] Multivitamin 1 tab PO DAILY 04/21/24 [History] terbinafine HCL [Terbinafine HCl] 1 tab PO DAILY 04/21/24 [History] Quetiapine Fumarate 25 mg [Seroquel 25 MG] 12.5 mg PO HS 11/11/24 [History] Hx Tetanus, Diphtheria Vaccination/Date Given: Yes Hx Influenza Vaccination/Date Given: Yes Hx Pneumococcal Vaccination/Date Given: Yes Travel Risk - International Travel Have you traveled outside of the country in past 3 weeks: No - Emerging Infectious Disease Are you exhibiting symptoms associated with any current EIDs: No Symptoms: Cough: New Onset - Review of Systems Constitutional: No Fever, No Chills Eyes: No Symptoms Ears, Nose, & Throat: No Symptoms Respiratory: No Cough, No Dyspnea Cardiac: No Chest Pain, No Edema, No Syncope Abdominal/Gastrointestinal: No Abdominal Pain, No Nausea, No Vomiting, No Diarrhea Genitourinary Symptoms: No Dysuria Musculoskeletal: Fall, Joint Pain, No Back Pain, No Neck Pain, No Injury Skin: No Rash Neurological: No Dizziness, No Focal Weakness, No Sensory Changes Psychological: No Symptoms Endocrine: No Symptoms All Other Systems: Reviewed and Negative - Past Medical History Pertinent Past Medical History: Yes Neurological History: Dementia ENT History: No Pertinent History Cardiac History: Congestive Heart Failure, Other Respiratory History: COPD, Sleep Apnea Endocrine Medical History: No Pertinent History Musculoskeletal History: Osteoarthritis GI Medical History: GERD, Gallbladder Disease History: No Pertinent History Psycho-Social History: Depression Male Reproductive Disorders: Prostate Problems Other Medical History: OTHER PMHX: BPH, CARDIOMYOPATHY, DEPRESSION, ENLARGED SPLEEN, GERD. SX HX: CARDIAC CATH (NO STENTS), CHOLECYSTECTOMY - Past Surgical History Past Surgical History: Yes Neuro Surgical History: No Pertinent History Cardiac: Cardiac Catheterization Respiratory: No Pertinent History Gastrointestinal: Cholecystectomy Genitourinary: No Pertinent History Musculoskeletal: No Pertinent History Male Surgical History: Prostate Surgery Other Surgical History: thomas. heart cath 2016 Significant Family History: no pertinent family hx - Social History Smoking Status: Never smoker Exposure to second hand smoke: No Drug Use: none Patient Lives Alone: No - Social Determinants of Health Will the patient participate in the screening: Yes Do you worry about a steady place to live?: No Do you have any problems with any of the following?: No known problems In the past 12 months,have you had to go without utilities?: No Transportation Issues: No Has anyone in your support network made you feel unsafe?: No Have you or anyone in your house had to go without enough: No - Nursing Vital Signs Nursing Vital Signs: Initial Vital Signs Temperature 97.7 F 11/11/24 12:41 Pulse Rate 83 11/11/24 12:41 Blood Pressure 117/79 11/11/24 12:41 O2 Sat by Pulse Oximetry 97 11/11/24 12:41 Pain Scale Pain Intensity 10 - Lincoln Coma Score Best Eye Response (Lincoln): (4) open spontaneously Best Verbal Response (Zack): (5) oriented Best Motor Response (Lincoln): (6) obeys commands Lincoln Total: 15 - Physical Exam General Appearance: no apparent distress, alert Head Injury: no evidence of injury Eye Exam: PERRL/EOMI ENT Exam: airway nml Neck Exam: normal inspection, No tenderness Respiratory/Chest Exam: normal breath sounds, No chest tenderness, No respiratory distress Cardiovascular Exam: normal heart sounds, regular rate/rhythm Gastrointestinal Exam: soft, No tenderness, No distention, No guarding, No ecchymosis Back Exam: normal inspection, No vertebral tenderness Extremity Exam: normal inspection, normal range of motion, pelvis stable, No deformities Neurologic Exam: alert, oriented x 3, cooperative, sensation nml, No motor deficits Skin Exam: normal color, warm, dry SpO2: 97 - Course Nursing assessment & vital signs reviewed: Yes - Radiology Exams Chest X-ray Interpretation: Interpreted by me, Reviewed by me, Negative, No Fracture, No Pneumonia, No Pneumothorax Hip X-ray Interpretation: Interpreted by me, Reviewed by me, Negative, No Fracture Knee X-ray Interpretation: Interpreted by me, Reviewed by me, Negative, No Fracture Ordered Tests: Active Orders 24 hr Category Date Time Status CHEST 2 VIEWS (PA AND LAT) Stat Exams 11/11/24 12:53 Taken HIP JESSA (4V) INCL PELV IF DONE Stat Exams 11/11/24 12:54 Taken KNEE (3 VIEWS) Stat Exams 11/11/24 12:54 Taken - Progress Progress: improved, pain not gone completely Counseled pt/family regarding: diagnosis, need for follow-up, rad results Medical Desision Making - Independent Historian Additional History obtained from: Spouse - Diagnostic Testing Radiological Interpretation: Interpreted by me, Reviewed by me - Risk of complications Minimal Risk: Minimal risk of morbidity - Departure Departure Disposition: Home Clinical Impression: Swelling of left knee, Acute right hip pain Fall Qualifiers: Encounter type: initial encounter Qualified Code(s): W19.XXXA - Unspecified fall, initial encounter Sternal contusion Qualifiers: Encounter type: initial encounter Qualified Code(s): S20.219A - Contusion of unspecified front wall of thorax, initial encounter Condition: Stable Critical Care Time: No Referrals: MAXIMUS STEWART [Primary Care Provider] - Follow Up with PCP/3 days Instructions: Contusion (DC), Preventing falls in adults Additional Instructions: Discharge/Care Plan CRYSTAL MONTES was seen on 11/11/24 in the Emergency Room. The patient was counseled regarding Diagnosis,Lab results, Imaging studies, need for follow up and when to return to the Emergency Room. Prescriptions given: Discharge Note I have spoken with the patient and/or caregivers. I have explained the patient's condition, diagnosis and treatment plan based on the information available to me at this time. I have answered the patient's and/or caregiver's questions and addressed any concerns. The patient and/or caregivers have as good understanding of the patient's diagnosis, condition and treatment plan as can be expected at this point. The vital signs have been stable. The patient's condition is stable and appropriate for discharge from the emergency department. The patient will pursue further outpatient evaluation with the primary care physician or other designated or consulting physician as outlined in the discharge instructions. The patient and/or caregivers are agreeable to this plan of care and follow-up instructions have been explained in detail. The patient and/or caregivers have received these instruction. The patient/and or caregivers are aware that any significant change in condition or worsening of symptoms should prompt an immediate return to this or the closest emergency department or call 911. CRYSTAL MONTES was seen on 11/11/24 n the Emergency Room. At that time you were treated for an emergent condition, during your visit Laboratory, Radiology and/or other procedures may have been ordered. It is very important that you follow-up with your Primary Care Physician MAXIMUS STEWART within the next 24-48 hours to review your Emergency Room visit and the final results of testing that was ordered. Some test results such as Urine Cultures, Blood Cultures, and other cultures if ordered will not be finalized for 24-48 hours. If you do not have a Primary Care Provider please call the medical records department at [phone] ext [phone] to obtain a copy of your results or you may sign into our patient portal to obtain these results by visiting us @ [email or web address] and completing the following steps: 1. Click on the Patient Portal link 2. Click the Patient Self Enrollment Link to complete the enrollment form and entering your 3. Once the enrollment form is completed you will receive an email with a temporary ID and password at the email address you provided. 4. Next choose a user name and password. Your user name must be at least 4 characters long and your password must be at least 4 characters long. 5. Choose a security question from the list and provide your answer to the question. If you already have signed into the Health Portal you may access your Health Care Information 10/06 by the following steps: 1. Login to our website @ [email or web address] 2. Enter your original user name and password. FAQS The [facility] Health Portal is an online tool that contains your Lab Results, Radiology Reports, Visit History, Discharge Instructions and Health Summary Lab and Radiology Results will not be available for 72 hours on the portal. The Portal is a secure site, passwords are encryted and URLs are re-written so they cannot be copied and pasted. You and authorized family members are the only ones who can access your Portal. Also there is a timeout feature that protects your information if you leave the Portal page open. If you have technical difficulty please use the Contact Us link on the page this will allow you to submit any questions you have regarding the Portal or you may contact the Medical Record Department at [phone] ext [phone].
[2024-11-11 13:45] VITALS: BP 136/76
[2024-11-11] MEDS ORDERED: XYLOCAINE 1% HCL 20 ML MDV ONE (14:01)
[2024-11-11] MEDS ORDERED: BACIGUENT PACKET ONE (14:25)
[2024-11-11] MEDS ORDERED: Adacel Vial IM ONE (14:37)
--- NOTE | 2024-11-11 18:11 | XRAY ---
Indication: Pain following fall 3 days ago. Comparison: April 21, 2024 PA/lateral chest again demonstrates COPD and is now clear. Heart not enlarged with tortuous ascending aorta and tiny right perihilar calcified granulomas. Bony thorax intact again with osteopenia and degenerative changes. Impression: Nonacute chest with chronic features.
--- NOTE | 2024-11-11 18:13 | XRAY ---
Indication: Pain following fall 3 days ago. Comparison: June 12, 2016 3 view left knee again demonstrates osteopenia, progressive worsening moderate/advanced tricompartmental degenerative changes, and mild scattered vascular calcifications. No acute bony, articular, or soft tissue abnormalities.
--- NOTE | 2024-11-11 18:13 | XRAY ---
Indication: Pain following fall 3 days ago. Comparison: None AP pelvis and 2 view left/right right hip demonstrates osteopenia, moderate lower lumbar degenerative spondylosis, and mild scattered vascular calcifications. No acute bony, articular, or soft tissue abnormalities.
== END 2024-11-11 13:50 | disposition home or self-care (01) ==
LOC: ED 12:34
DX: M79.89 Other specified soft tissue disorders (principal); M25.562 Pain in left knee; S20.219A Contusion of unspecified front wall of thorax, initial encounter; S70.01XA Contusion of right hip, initial encounter; S80.11XA Contusion of right lower leg, initial encounter; W01.119A Fall on same level from slipping, tripping and stumbling with subsequent striking against unspecified sharp object, initial encounter
CPT/HCPCS: 71046; 73522; 73562; 90471; 90715; 99282; A9270-GY